=== PATIENT | female | born 1955 | race Asian ===

== ENCOUNTER → 2017-07-21 09:20 | Outpatient (CLI) | payer OTHER, SELFPAY ==
[2017-07-21 09:57] LABS: Hemoglobin A1C% w Est Avg Glu 7.2 % (4.0-6.0)
[2017-07-21 10:20] LABS: Microalbumi Creatinin Ratio Ur 15.6 ug/mg CR (<30)
[2017-07-21 10:24] LABS: Alanine Aminotransferase 32 IU/L (9-52); Albumin 4.2 g/dL (3.5-5.0); Albumin Globulin Ratio 0.9 (1.0-2.8); Alkaline Phosphatase 57 U/L (38-126); Aspartate Aminotransferase 27 IU/L (14-36); BUN Creatinine Ratio 21.7 (6-22); Bilirubin Total 0.7 mg/dL (0.2-1.3); Blood Urea Nitrogen 13 mg/dL (7-17); Carbon Dioxide 28 mmol/L (22-32); Chloride 100 mmol/L (98-107); Cholesterol 210 mg/dL (140-199); Estimated Glomerular Filt Rate > 60.0 mL/min (>60); Globulin 4.5 g/dL (1.7-4.1); Glucose 134 mg/dL (80-110); HDL Cholesterol 42 mg/dL (40-60); HEMOLYSIS < 15 (0-50); LDL Cholesterol Calculated 136 mg/dL (<100); Potassium 4.3 mmol/L (3.4-5.1); Sodium 139 mmol/L (137-145); Total Protein 8.7 g/dL (6.3-8.2); Triglycerides 160 mg/dL (35-150)
== END ==
PROVIDERS: PCP Physician Assistant; Visit Provider Physician Assistant
DX: E78.2 Mixed hyperlipidemia (principal); E11.9 Type 2 diabetes mellitus without complications; I10 Essential (primary) hypertension
CPT/HCPCS: 36415; 80053; 80061; 82043; 82570; 83036

== ENCOUNTER → 2018-01-15 10:19 | Outpatient (CLI) | payer OTHER, SELFPAY ==
[2018-01-15 11:09] LABS: Alanine Aminotransferase 21 IU/L (9-52); Albumin 4.6 g/dL (3.5-5.0); Albumin Globulin Ratio 1.1 (1.0-2.8); Alkaline Phosphatase 56 U/L (38-126); Aspartate Aminotransferase 19 IU/L (14-36); Bilirubin Total 0.6 mg/dL (0.2-1.3); Blood Urea Nitrogen 12 mg/dL (7-17); Calcium 9.4 mg/dL (8.4-10.2); Carbon Dioxide 30 mmol/L (22-32); Chloride 101 mmol/L (98-107); Cholesterol 228 mg/dL (140-199); Estimated Glomerular Filt Rate > 60.0 mL/min (>60); Globulin 4.2 g/dL (1.7-4.1); Glucose 133 mg/dL (80-110); HDL Cholesterol 50 mg/dL (40-60); HEMOLYSIS < 15 (0-50); LDL Cholesterol Calculated 145 mg/dL (<100); Potassium 4.5 mmol/L (3.4-5.1); Sodium 143 mmol/L (137-145); Total Protein 8.8 g/dL (6.3-8.2); Triglycerides 164 mg/dL (35-150)
[2018-01-15 11:12] LABS: Hemoglobin A1C% w Est Avg Glu 7.5 % (4.0-6.0)
[2018-01-15 11:22] LABS: Creatinine Urine Random 85.5 mg/dL
[2018-01-15 11:27] LABS: Microalbumin Urine Random 2.4 mg/dL (0-1.6)
== END ==
PROVIDERS: PCP Physician Assistant; Visit Provider Physician Assistant
DX: E11.9 Type 2 diabetes mellitus without complications (principal); E78.2 Mixed hyperlipidemia; I10 Essential (primary) hypertension
CPT/HCPCS: 36415; 80053; 80061; 82043; 82570; 83036

== ENCOUNTER 2018-02-04 15:05 | Emergency (ER) | payer OTHER, SELFPAY ==
[2018-02-04 15:18] VITALS: BP 175/86; PULSE 80; RESP 15; TEMP 36.7; O2SAT 99; BMI 23.2
[2018-02-04 15:20] VITALS: BP 171/97; BP 173/93; BP 175/86; PULSE 80; PULSE 86; PULSE 91
--- NOTE | 2018-02-04 15:21 | PC.NURSE ---
pt feels dizzy with position changes,like the room is spinning
--- NOTE | 2018-02-04 15:38 | PC.NURSE ---
States symptoms for a month.
--- NOTE | 2018-02-04 15:45 | ED.DIZZY ---
HPI - Dizziness <Osman MarshSHAYLA do - Last Filed: 02/04/18 21:25> General Chief Complaint: Dizziness Stated Complaint: vertigo Time Seen by Provider: 02/04/18 15:45 Source: patient Mode of arrival: ambulatory Limitations: no limitations History of Present Illness HPI Narrative: 62-year-old female with history of type 2 diabetes and is a nonsmoker here with multiple complaints. She reports that she has had vertigo with the room spinning type of sensation over the past couple of weeks. She reports that she has had the symptoms on and off over the past couple of years. She states that when she moves or changes position quickly it worsens her symptoms. She denies any nausea or vomiting. She denies any headaches no fevers no chills. She denies any chest pain or shortness of breath. She also reports she has had left lower quadrant pain on and off also for the past couple of years. She denies any urinary symptoms. Positive p.o. intake. Last bowel movement was yesterday was unremarkable. No other concerns or complaints at this time. Related Data Home Medications Medication Instructions Recorded Confirmed plant stanol festus 450 mg tablet 2 tab PO DAILY tab 01/26/18 02/04/18 aspirin 81 mg PO DAILY 02/04/18 02/04/18 cranberry 1 cap PO DAILY 02/04/18 02/04/18 Previous Rx's Medication Instructions Recorded Freestyle lite glucometer See Label Instructions .ROUTE BID 01/26/18 #1 each freestyle lite test strips See Label Instructions .ROUTE BID 01/26/18 #100 each lancets See Label Instructions .ROUTE BID 01/26/18 #100 each losartan 25 mg tablet 25 mg PO BID #180 tab 01/26/18 metformin 500 mg tablet 500 mg PO BIDCC #180 tab 01/26/18 diazepam 2 mg PO BID PRN #14 tab 02/04/18 Allergies Allergy/AdvReac Type Severity Reaction Status Date / Time atorvastatin [ATORVASTATIN] Allergy Intermediate Myalgias, Verified 02/04/18 15:18 ankle pain influenza virus vaccine tv Allergy Intermediate HIVES Verified 02/04/18 15:18 splt 2012- (4 yr,up) [From FLUVIRIN] diphenhydramine Allergy Mild LAWSON AND Verified 02/04/18 15:18 [DIPHENHYDRAMINE] FATIGUE lisinopril [LISINOPRIL] Allergy Mild Body aches Verified 02/04/18 15:18 rosuvastatin [ROSUVASTATIN] Allergy Mild Body aches Verified 02/04/18 15:18 niacin [NIACIN] Allergy Unknown PATIENT Verified 02/04/18 15:18 DOESN'T REMEMBER Review of Systems <SHAYLA Adames - Last Filed: 02/04/18 21:25> Constitutional Denies chills, Denies fever(s), Denies lethargy and Denies weakness Eyes Denies change in vision, Denies eye discharge, Denies irritation and Denies loss of vision ENT Ears, Nose, Mouth, and Throat: Denies change in voice, Denies neck pain and Denies sore throat Cardiovascular Denies chest pain, Denies irregular heart rhythm, Denies lightheadedness, Denies palpitations, Denies dyspnea, Denies dyspnea on exertion and Denies orthopnea Respiratory Denies cough, Denies dyspnea, Denies dyspnea on exertion and Denies wheezing Gastrointestinal Gastrointestinal: Denies abdominal pain, Denies change in bowel habits, Denies diarrhea, Denies nausea and Denies vomiting Comments: Left lower quadrant pain on and off last couple of years. Genitourinary Denies hematuria, Denies flank pain, Denies urinary incontinence and Denies urinary urgency Musculoskeletal Denies neck pain Integumentary/Breasts Denies pruritus, Denies erythema, Denies rash and Denies wounds Neurologic Denies confusion, Denies loss of vision and Denies weakness Comments: Vertigo on and off last couple years Psychiatric Denies anxiety, Denies confusion, Denies depression, Denies homicidal ideation and Denies suicidal ideation Endocrine Denies palpitations Hematologic/Lymphatic Denies easy bruising Allergic/Immunologic Denies wheezing Exam <SHAYLA Adames - Last Filed: 02/04/18 21:25> Initial Vital Signs Initial Vital Signs: Vital Signs Temperature 98.0 F 02/04/18 15:18 Pulse Rate 80 02/04/18 15:18 Respiratory Rate 15 02/04/18 15:18 Blood Pressure 175/86 H 02/04/18 15:18 Pulse Oximetry 99 02/04/18 15:18 Const General: cooperative and well developed Nutritional Appearance: well nourished Orientation: alert, awake, oriented x3 and not confused HENMT Ears: TM's normal bilaterally Mouth: oral mucosae normal and moist mucous membranes Eyes Conjunctivae: conjunctivae normal Sclera: sclerae normal Pupils: PERRL EOM: EOM intact bilaterally Resp Effort & Inspection: normal respiratory effort, able to speak in complete sentences, no respiratory distress and no use of accessory muscles Auscultation: clear to auscultation bilaterally, no rales, no rhonchi and no wheezes Cardio Rate: regular rate Rhythm: regular rhythm Heart Sounds: no click, no gallops, no murmurs and no rubs Pulses: normal peripheral pulses GI Inspection: non-distended Palpation: soft, no hepatosplenomegaly, No guarding, No pulsatile mass and No tender Auscultation: normal bowel sounds General: No CVA tenderness Skin General: no rashes or lesions noted, No jaundice and No petechiae Neuro General: alert, oriented x3, gait normal and no focal motor deficits Speech: speech normal <Ana Baig DO - Last Filed: 02/07/18 07:30> Initial Vital Signs Initial Vital Signs: Vital Signs Temperature 98.0 F 02/04/18 15:18 Pulse Rate 80 02/04/18 15:18 Respiratory Rate 15 02/04/18 15:18 Blood Pressure 175/86 H 02/04/18 15:18 Pulse Oximetry 99 02/04/18 15:18 Course <SHAYLA Adames - Last Filed: 02/04/18 21:25> Orders Ordered: Discontinued Medications Diazepam (Valium) 2 mg IV NOW ONE Stop: 02/04/18 18:10 Last Admin: 02/04/18 18:18 Dose: 2 mg Sodium Chloride (Normal Saline 0.9%) 1,000 mls @ 150 mls/hr IV CONT RORO Last Infusion: 02/04/18 18:59 Dose: 0 mls/hr Admin: 02/04/18 16:54 Dose: 150 mls/hr Vital Signs - 8 hr 02/04/18 15:18 02/04/18 15:20 02/04/18 16:51 Temperature 98.0 F Pulse Rate 80 73 Pulse Rate [Orthostatic Lying] 80 Pulse Rate [Orthostatic Sitting] 91 H Pulse Rate [Orthostatic Standing] 86 Respiratory Rate 15 16 Blood Pressure 175/86 H Blood Pressure [Left Arm] 156/75 H Blood Pressure [Orthostatic Lying] 175/86 H Blood Pressure [Orthostatic Sitting] 171/97 H Blood Pressure [Orthostatic Standing] 173/93 H Pulse Oximetry 99 98 02/04/18 18:04 02/04/18 19:03 Temperature Pulse Rate 82 75 Pulse Rate [Orthostatic Lying] Pulse Rate [Orthostatic Sitting] Pulse Rate [Orthostatic Standing] Respiratory Rate 17 13 Blood Pressure 137/72 Blood Pressure [Left Arm] 148/77 H Blood Pressure [Orthostatic Lying] Blood Pressure [Orthostatic Sitting] Blood Pressure [Orthostatic Standing] Pulse Oximetry 100 97 <Ana Baig DO - Last Filed: 02/07/18 07:30> Orders Ordered: Discontinued Medications Diazepam (Valium) 2 mg IV NOW ONE Stop: 02/04/18 18:10 Last Admin: 02/04/18 18:18 Dose: 2 mg Sodium Chloride (Normal Saline 0.9%) 1,000 mls @ 150 mls/hr IV CONT RORO Last Infusion: 02/04/18 18:59 Dose: 0 mls/hr Admin: 02/04/18 16:54 Dose: 150 mls/hr Vital Signs - 8 hr 02/04/18 15:18 02/04/18 15:20 02/04/18 16:51 Temperature 98.0 F Pulse Rate 80 73 Pulse Rate [Orthostatic Lying] 80 Pulse Rate [Orthostatic Sitting] 91 H Pulse Rate [Orthostatic Standing] 86 Respiratory Rate 15 16 Blood Pressure 175/86 H Blood Pressure [Left Arm] 156/75 H Blood Pressure [Orthostatic Lying] 175/86 H Blood Pressure [Orthostatic Sitting] 171/97 H Blood Pressure [Orthostatic Standing] 173/93 H Pulse Oximetry 99 98 02/04/18 18:04 02/04/18 19:03 Temperature Pulse Rate 82 75 Pulse Rate [Orthostatic Lying] Pulse Rate [Orthostatic Sitting] Pulse Rate [Orthostatic Standing] Respiratory Rate 17 13 Blood Pressure 137/72 Blood Pressure [Left Arm] 148/77 H Blood Pressure [Orthostatic Lying] Blood Pressure [Orthostatic Sitting] Blood Pressure [Orthostatic Standing] Pulse Oximetry 100 97 MDM - Dizziness <SHAYLA Adames - Last Filed: 02/04/18 21:25> Lab Data Result diagrams: 02/04/18 16:35 02/04/18 16:35 Lab Results 02/04/18 02/04/18 Range/Units 16:35 16:35 WBC 6.5 (4.5-11.0) X10^3/uL RBC 5.00 (4.0-5.2) X10^6/uL Hgb 14.9 (12.0-16.0) g/dL Hct 44.2 (36-46) % MCV 88.4 (80-100) fL MCH 29.8 (26-34) PG MCHC 33.7 (30-36) % RDW 13.3 (11.6-14.8) % Plt Count 253 (150-400) X10^3/uL Neut % (Auto) 53.4 (50-75) % Lymph % (Auto) 37.8 (25-40) % [place] % (Auto) 5.4 (3-14) % Eos % (Auto) 2.4 (2-4) % Baso % (Auto) 1.0 (0-2) % Neut # (Auto) 3500 (1221-2778) /uL Sodium 143 (137-145) mmol/L Potassium 3.9 (3.4-5.1) mmol/L Chloride 102 (98-107) mmol/L Carbon Dioxide 28 (22-32) mmol/L BUN 13 (7-17) mg/dL Creatinine 0.70 (0.52-1.04) mg/dL Estimated GFR > 60.0 (>60) mL/min BUN/Creatinine Ratio 18.6 (6-22) Glucose 117 H (80-110) mg/dL Calcium 9.7 (8.4-10.2) mg/dL Total Bilirubin 0.4 (0.2-1.3) mg/dL AST 24 (14-36) IU/L ALT 26 (9-52) IU/L Alkaline Phosphatase 60 (38-126) U/L Total Creatine Kinase 79 (30-135) U/L CK-MB (CK-2) TNP CK-MB (CK-2) Rel Index TNP Troponin I < 0.012 (0.01-0.034) ng/mL Total Protein 9.5 H (6.3-8.2) g/dL Albumin 4.9 (3.5-5.0) g/dL Globulin 4.6 H (1.7-4.1) g/dL Albumin/Globulin Ratio 1.1 (1.0-2.8) Lipase 145 (23-300) U/L Urine Dip Bedside Urine Glucose Negative Bedside Urine Bilirubin - Negative Bedside Urine Ketone - Negative Urine Specific Yale 1.010 Bedside Urine Occult Blood - Negative Bedside Urine pH 6.5 Bedside Urine Protein - Negative Bedside Urine Urobilinogen - Negative Bedside Urine Nitrite - Negative Bedside Urine Leukocytes - Negative Esterase Imaging Data CT scan - abdomen: Radiologist's impression: [address] [address] [address] Scan Report Signed Patient: Skye Powers MR#: [id number] : 1955 Acct:[id number] Age/Sex: 62 / F Date of Service: 02/04/18 Loc: ED Accession Number: [id number] Procedure: CT abdomen pelvis w con Ordering Provider: Osman Downs PROCEDURE: CT ABDOMEN PELVIS W CON INDICATIONS: Left lower quadrant pain TECHNIQUE: After the administration of intravenous contrast, 5 mm thick sections acquired from the diaphragm to the symphysis. 5 mm coronal and sagittal reformats were acquired. For radiation dose reduction, the following was used: automated exposure control, adjustment of mA and/or kV according to patient size. COMPARISON: [facility], CT, CT HEAD/BRAIN WO CON, 02/04/2018, 17:08. FINDINGS: Image quality: Excellent. ABDOMEN: Lung bases: Lung bases are clear. Heart size is normal. Solid organs: There is diffuse hepatic hypoattenuation suggestive of hepatic steatosis. Liver is otherwise normal in size and enhancement. Gallbladder is unremarkable. Biliary system is non dilated. Pancreas enhances normally. Spleen is normal in size and enhancement. No adrenal nodules. Kidneys demonstrate normal size and enhancement, without hydronephrosis. Peritoneum and bowel: Multiple small bowel loops demonstrate minimal wall hyperemia, predominantly within the anterior abdomen. Moderate shoulder noted. Bowel loops demonstrate otherwise normal wall thickness and caliber. No free fluid or air. Appendix is best seen on axial image 47 of series 2. There are no left lower quadrant inflammatory findings to suggest acute diverticulitis on CT. Nodes and vessels: No retroperitoneal or mesenteric adenopathy by size criteria. Aorta and inferior vena cava are normal in size. Moderate calcified and noncalcified plaque of abdominal aorta. Miscellaneous: No ventral hernias. PELVIS: Genitourinary: Bladder wall thickness is normal. Miscellaneous: No inguinal hernias or adenopathy. Uterus is present. Bilateral pelvic surgical clips are noted, likely from prior tubal ligation. Bilateral adnexa are prominent, but no abnormal adnexal masses are identified. Bones: Mild multilevel degenerative changes of the spine. IMPRESSION: 1. Multiple small bowel loops demonstrate minimal wall hyperemia, a nonspecific finding that can be seen with low-grade bowel inflammation/enteritis. Clinical correlation recommended. 2. Moderate stool burden within the colon. 3. Additional findings as described above, including diffuse hepatic hypoattenuation suggestive of hepatic steatosis. Dictated by: Dominguez Leija M.D. on 02/04/2018 at 17:57 Approved by: Dominguez Leija M.D. on 02/04/2018 at 18:08 Chest x-ray: Radiologist's impression: [address] [address] XRay Report Signed Patient: Skye Powers MR#: [id number] : 1955 Acct:[id number] Age/Sex: 62 / F Date of Service: 02/04/18 Loc: ED Accession Number: [id number] Procedure: XR chest 1V Ordering Provider: Osman Downs PROCEDURE: XR CHEST 1V INDICATIONS: Vertigo TECHNIQUE: One view of the chest was acquired. COMPARISON: [facility], CHEST 1 VIEW, 01/12/2016, 14:45. FINDINGS: Surgical changes and devices: None. Lungs and pleura: No pleural effusions or pneumothorax. Lungs are clear. Mediastinum: Mediastinal contours appear normal. Heart size is normal. Bones and chest wall: No suspicious bony lesions. Overlying soft tissues appear unremarkable. IMPRESSION: No acute cardiopulmonary pathology. Dictated by: Wayne Rosas M.D. on 02/04/2018 at 16:53 Approved by: Wayne Rosas M.D. on 02/04/2018 at 16:54 CT scan - head: Radiologist's impression: Launch Image View Report History Print [address] [address] [address] Scan Report Signed Patient: Skye Powers MR#: [id number] : 1955 Acct:[id number] Age/Sex: 62 / F Date of Service: 02/04/18 Loc: ED Accession Number: [id number] Procedure: CT head/brain wo con Ordering Provider: Osman Downs PROCEDURE: CT HEAD/BRAIN WO CON INDICATIONS: Vertigo TECHNIQUE: Noncontrast 4.5 mm thick angled axial sections acquired from the foramen magnum to the vertex, with coronal and sagittal reformats. For radiation dose reduction, the following was used: automated exposure control, adjustment of mA and/or kV according to patient size. COMPARISON: None. FINDINGS: Image quality: Excellent. CSF spaces: Basal cisterns are patent. There is moderate diffuse cerebral volume loss resulting in increased prominence of the sulci, ventricles, and extra-axial spaces. Brain: No midline shift. No intracranial masses or hemorrhage. Vallejo-white matter interface is normal. Vascular calcifications are noted. Mild scattered subcortical and periventricular white matter hypoattenuation is nonspecific but can be seen with chronic microvascular ischemic changes. Skull and face: Calvarium and visualized facial bones are intact, without suspicious lesions. The optic lenses are not well seen on this exam. Sinuses: Mild right maxillary sinus mucosal thickening. Visualized sinuses and mastoids are otherwise clear. IMPRESSION: No acute intracranial abnormality. Dictated by: Dominguez Leija M.D. on 02/04/2018 at 17:49 Approved by: Dominguez Leija M.D. on 02/04/2018 at 17:56 ECG Data Interpretation: EKG shows normal sinus rhythm with no ST elevation or depression. No ectopy. Ventricular rate is 77. Pr interval of 192. QRS duration 95. QTC of 411. MDM Narrative Medical decision making narrative: CBC was obtained was unremarkable. Chem panel and lipase were obtained and were unremarkable. Cardiac enzymes were obtained were negative. EKG shows sinus rhythm with no ST elevation or depression. No ectopy. Chest x-ray was obtained was negative for any acute findings. Head CT was obtained was also negative for any acute findings. CT of the abdomen was obtained and shows moderate stool loading to the colon area most likely causing her discomfort. She is prescribed MiraLax. No emergent cause of chronic vertigo is found. She is prescribed small amount of diazepam to see if it helps with her symptoms. Follow up with primary care provider. She is referred to ENT for further evaluation. For any worsening symptoms return to the emergency room. <Ana Baig, - Last Filed: 12/31/18 07:30> Lab Data Lab Results 02/04/18 02/04/18 Range/Units 16:35 16:35 WBC 6.5 (4.5-11.0) X10^3/uL RBC 5.00 (4.0-5.2) X10^6/uL Hgb 14.9 (12.0-16.0) g/dL Hct 44.2 (36-46) % MCV 88.4 (80-100) fL MCH 29.8 (26-34) PG MCHC 33.7 (30-36) % RDW 13.3 (11.6-14.8) % Plt Count 253 (150-400) X10^3/uL Neut % (Auto) 53.4 (50-75) % Lymph % (Auto) 37.8 (25-40) % [place] % (Auto) 5.4 (3-14) % Eos % (Auto) 2.4 (2-4) % Baso % (Auto) 1.0 (0-2) % Neut # (Auto) 3500 (3436-9194) /uL Sodium 143 (137-145) mmol/L Potassium 3.9 (3.4-5.1) mmol/L Chloride 102 (98-107) mmol/L Carbon Dioxide 28 (22-32) mmol/L BUN 13 (7-17) mg/dL Creatinine 0.70 (0.52-1.04) mg/dL Estimated GFR > 60.0 (>60) mL/min BUN/Creatinine Ratio 18.6 (6-22) Glucose 117 H (80-110) mg/dL Calcium 9.7 (8.4-10.2) mg/dL Total Bilirubin 0.4 (0.2-1.3) mg/dL AST 24 (14-36) IU/L ALT 26 (9-52) IU/L Alkaline Phosphatase 60 (38-126) U/L Total Creatine Kinase 79 (30-135) U/L CK-MB (CK-2) TNP CK-MB (CK-2) Rel Index TNP Troponin I < 0.012 (0.01-0.034) ng/mL Total Protein 9.5 H (6.3-8.2) g/dL Albumin 4.9 (3.5-5.0) g/dL Globulin 4.6 H (1.7-4.1) g/dL Albumin/Globulin Ratio 1.1 (1.0-2.8) Lipase 145 (23-300) U/L Urine Dip Bedside Urine Glucose Negative Bedside Urine Bilirubin - Negative Bedside Urine Ketone - Negative Urine Specific Yale 1.010 Bedside Urine Occult Blood - Negative Bedside Urine pH 6.5 Bedside Urine Protein - Negative Bedside Urine Urobilinogen - Negative Bedside Urine Nitrite - Negative Bedside Urine Leukocytes - Negative Esterase Discharge Plan Departure Patient Disposition: Home Clinical Impression: Vertigo, Abdominal pain Discharge Date/Time: 02/04/18 19:03 Interventions: ED Discharge Assessment Last Done: 02/04/18 19:03 Instructions: DI for Vertigo Activity Restrictions/Additional Instructions: CT of the head and chest x-ray were obtained were unremarkable. Laboratory results today were normal. Cardiac enzymes were normal. EKG was unremarkable. CT of the abdomen shows moderate amount of stool loading to the colon area most likely causing her discomfort. Year prescribed MiraLax laxative to see if it helps symptoms. Plenty of fluids. You are prescribed diazepam to see if it helps with the vertigo use as directed no driving while on the diazepam. Follow up with ENT call the office at number provided to schedule follow-up appointment. Follow up with primary care provider. Return emergency room for any worsening symptoms. Prescriptions: New diazepam 2 mg tablet 2 mg PO BID PRN (Reason: vertigo) Qty: 14 RF: 0 No Action plant stanol festus [Cholest Off] 450 mg tablet 2 tab PO DAILY RF: 0 losartan 25 mg tablet 25 mg PO BID Qty: 180 RF: 0 metformin [Glucophage] 500 mg tablet 500 mg PO BIDCC Qty: 180 RF: 3 Freestyle lite glucometer See Label Instructions .ROUTE BID Qty: 1 RF: 0 lancets See Label Instructions .ROUTE BID Qty: 100 RF: 3 freestyle lite test strips See Label Instructions .ROUTE BID Qty: 100 RF: 3 aspirin 81 mg Tablet,Delayed Release (Dr/Ec) 81 mg PO DAILY RF: 0 cranberry 1 cap PO DAILY RF: 0 Referrals: Kyle Daigle MD [Physician] - Caroline Fontana PA-C [Primary Care Provider] - <Ana Baig DO - Last Filed: 02/07/18 07:30> Cosign ED Attending Cosignature Attestation: I was immediately available in the department for consultation. This documentation has been reviewed and I agree with assessment and plan. Supervised by Ana Baig, DO
--- NOTE | 2018-02-04 16:29 | DI.RAD.S_ITS ---
PROCEDURE: XR CHEST 1V INDICATIONS: Vertigo TECHNIQUE: One view of the chest was acquired. COMPARISON: [facility], , CHEST 1 VIEW, 01/12/2016, 14:45. FINDINGS: Surgical changes and devices: None. Lungs and pleura: No pleural effusions or pneumothorax. Lungs are clear. Mediastinum: Mediastinal contours appear normal. Heart size is normal. Bones and chest wall: No suspicious bony lesions. Overlying soft tissues appear unremarkable. IMPRESSION: No acute cardiopulmonary pathology. Dictated by: Wayne Rosas M.D. on 02/04/2018 at 16:53 Approved by: Wayne Rosas M.D. on 02/04/2018 at 16:54
--- NOTE | 2018-02-04 16:29 | DI.CT.S_ITS ---
PROCEDURE: CT HEAD/BRAIN WO CON INDICATIONS: Vertigo TECHNIQUE: Noncontrast 4.5 mm thick angled axial sections acquired from the foramen magnum to the vertex, with coronal and sagittal reformats. For radiation dose reduction, the following was used: automated exposure control, adjustment of mA and/or kV according to patient size. COMPARISON: None. FINDINGS: Image quality: Excellent. CSF spaces: Basal cisterns are patent. There is moderate diffuse cerebral volume loss resulting in increased prominence of the sulci, ventricles, and extra-axial spaces. Brain: No midline shift. No intracranial masses or hemorrhage. Vallejo-white matter interface is normal. Vascular calcifications are noted. Mild scattered subcortical and periventricular white matter hypoattenuation is nonspecific but can be seen with chronic microvascular ischemic changes. Skull and face: Calvarium and visualized facial bones are intact, without suspicious lesions. The optic lenses are not well seen on this exam. Sinuses: Mild right maxillary sinus mucosal thickening. Visualized sinuses and mastoids are otherwise clear. IMPRESSION: No acute intracranial abnormality. Dictated by: Dominguez Leija M.D. on 02/04/2018 at 17:49 Approved by: Dominguez Leija M.D. on 02/04/2018 at 17:56
--- NOTE | 2018-02-04 16:30 | DI.CT.S_ITS ---
PROCEDURE: CT ABDOMEN PELVIS W CON INDICATIONS: Left lower quadrant pain TECHNIQUE: After the administration of intravenous contrast, 5 mm thick sections acquired from the diaphragm to the symphysis. 5 mm coronal and sagittal reformats were acquired. For radiation dose reduction, the following was used: automated exposure control, adjustment of mA and/or kV according to patient size. COMPARISON: [facility], CT, CT HEAD/BRAIN WO CON, 02/04/2018, 17:08. FINDINGS: Image quality: Excellent. ABDOMEN: Lung bases: Lung bases are clear. Heart size is normal. Solid organs: There is diffuse hepatic hypoattenuation suggestive of hepatic steatosis. Liver is otherwise normal in size and enhancement. Gallbladder is unremarkable. Biliary system is non dilated. Pancreas enhances normally. Spleen is normal in size and enhancement. No adrenal nodules. Kidneys demonstrate normal size and enhancement, without hydronephrosis. Peritoneum and bowel: Multiple small bowel loops demonstrate minimal wall hyperemia, predominantly within the anterior abdomen. Moderate shoulder noted. Bowel loops demonstrate otherwise normal wall thickness and caliber. No free fluid or air. Appendix is best seen on axial image 47 of series 2. There are no left lower quadrant inflammatory findings to suggest acute diverticulitis on CT. Nodes and vessels: No retroperitoneal or mesenteric adenopathy by size criteria. Aorta and inferior vena cava are normal in size. Moderate calcified and noncalcified plaque of abdominal aorta. Miscellaneous: No ventral hernias. PELVIS: Genitourinary: Bladder wall thickness is normal. Miscellaneous: No inguinal hernias or adenopathy. Uterus is present. Bilateral pelvic surgical clips are noted, likely from prior tubal ligation. Bilateral adnexa are prominent, but no abnormal adnexal masses are identified. Bones: Mild multilevel degenerative changes of the spine. IMPRESSION: 1. Multiple small bowel loops demonstrate minimal wall hyperemia, a nonspecific finding that can be seen with low-grade bowel inflammation/enteritis. Clinical correlation recommended. 2. Moderate stool burden within the colon. 3. Additional findings as described above, including diffuse hepatic hypoattenuation suggestive of hepatic steatosis. Dictated by: Dominguez Leija M.D. on 02/04/2018 at 17:57 Approved by: Dominguez Leija M.D. on 02/04/2018 at 18:08
[2018-02-04 16:47] LABS: Add Manual Diff / Slide Review NO; Eosinophils Percent Auto 2.4 % (2-4); Hematocrit 44.2 % (36-46); Hemoglobin 14.9 g/dL (12.0-16.0); Lymphocytes Percent Auto 37.8 % (25-40); Mean Corpuscular HGB Conc 33.7 % (30-36); Mean Corpuscular Hemoglobin 29.8 PG (26-34); Mean Corpuscular Volume 88.4 fL (80-100); Monocytes Percent Auto 5.4 % (3-14); Neutrophils Absolute Auto 3500 /uL (1500-7000); Neutrophils Percent Auto 53.4 % (50-75); Platelet Count 253 X10^3/uL (150-400); Red Cell Distribution Width 13.3 % (11.6-14.8); White Blood Cell Count 6.5 X10^3/uL (4.5-11.0)
[2018-02-04 16:51] VITALS: BP 156/75; PULSE 73; RESP 16; O2SAT 98
[2018-02-04] MEDS: SODIUM CHLORIDE 0.9% 1,000 ML 150 ML IV (16:54)
[2018-02-04 17:07] LABS: Alanine Aminotransferase 26 IU/L (9-52); Albumin 4.9 g/dL (3.5-5.0); Albumin Globulin Ratio 1.1 (1.0-2.8); Alkaline Phosphatase 60 U/L (38-126); Aspartate Aminotransferase 24 IU/L (14-36); BUN Creatinine Ratio 18.6 (6-22); Bilirubin Total 0.4 mg/dL (0.2-1.3); Blood Urea Nitrogen 13 mg/dL (7-17); Calcium 9.7 mg/dL (8.4-10.2); Carbon Dioxide 28 mmol/L (22-32); Chloride 102 mmol/L (98-107); Creatine Kinase 79 U/L (30-135); Estimated Glomerular Filt Rate > 60.0 mL/min (>60); Globulin 4.6 g/dL (1.7-4.1); Glucose 117 mg/dL (80-110); HEMOLYSIS < 15 (0-50); Lipase 145 U/L (23-300); Potassium 3.9 mmol/L (3.4-5.1); Sodium 143 mmol/L (137-145); Total Protein 9.5 g/dL (6.3-8.2)
[2018-02-04 17:29] LABS: Troponin I < 0.012 ng/mL (0.01-0.034)
[2018-02-04 18:04] VITALS: BP 148/77; PULSE 82; RESP 17; O2SAT 100
[2018-02-04] MEDS: diazePAM 10 MG/2 ML SYRINGE 2 MG IV (18:18)
[2018-02-04 19:03] VITALS: BP 137/72; PULSE 75; RESP 13; O2SAT 97
== END 2018-02-04 19:03 | disposition home or self-care (01) ==
PROVIDERS: Emergency Provider Nurse Practitioner Family; PCP Physician Assistant
DX: R42 Dizziness and giddiness (principal); R10.9 Unspecified abdominal pain
CPT/HCPCS: 36591; 70450; 71045; 74177; 80053; 81003; 82550; 83690; 84484; 85025; 93005; 96361; 96374; 99283; 99285; J3360

== ENCOUNTER → 2018-12-02 10:32 | Outpatient (CLI) | payer MEDICARE, OTHER, SELFPAY ==
[2018-12-02 11:08] LABS: Hemoglobin A1C% w Est Avg Glu 7.3 % (4.0-6.0)
[2018-12-02 11:18] LABS: Alanine Aminotransferase 18 IU/L (9-52); Albumin 4.7 g/dL (3.5-5.0); Albumin Globulin Ratio 1.1 (1.0-2.8); Alkaline Phosphatase 66 U/L (38-126); Aspartate Aminotransferase 23 IU/L (14-36); Bilirubin Total 0.7 mg/dL (0.2-1.3); Blood Urea Nitrogen 8 mg/dL (7-17); Calcium 9.5 mg/dL (8.4-10.2); Carbon Dioxide 28 mmol/L (22-32); Chloride 100 mmol/L (98-107); Cholesterol 230 mg/dL (140-199); Estimated Glomerular Filt Rate > 60.0 mL/min (>60); Globulin 4.1 g/dL (1.7-4.1); Glucose 131 mg/dL (80-110); HDL Cholesterol 40 mg/dL (40-60); HEMOLYSIS < 15 (0-50); LDL Cholesterol Calculated 139 mg/dL (<100); Potassium 4.7 mmol/L (3.4-5.1); Sodium 139 mmol/L (137-145); Total Protein 8.8 g/dL (6.3-8.2); Triglycerides 253 mg/dL (35-150)
[2018-12-02 11:22] LABS: Creatinine Urine Random 46.3 mg/dL
[2018-12-02 11:27] LABS: Microalbumi Creatinin Ratio Ur 25.9 ug/mg CR (<30); Microalbumin Urine Random 1.2 mg/dL (0-1.6)
== END ==
PROVIDERS: PCP Physician Assistant; Visit Provider Physician Assistant
DX: E11.9 Type 2 diabetes mellitus without complications (principal); E78.2 Mixed hyperlipidemia; I10 Essential (primary) hypertension
CPT/HCPCS: 36415; 80053; 80061; 82043; 82570; 83036

== ENCOUNTER 2019-01-28 12:17 | Emergency (ER) | payer MEDICARE, OTHER, SELFPAY ==
[2019-01-28 12:33] VITALS: BP 166/81; PULSE 98; RESP 17; TEMP 36.7; O2SAT 98
--- NOTE | 2019-01-28 12:49 | ED_ITS ---
HPI - URI/Sore Throat General Chief Complaint: Upper Respiratory Symptoms Stated Complaint: sick for awhile/nausea/poss UTI Time Seen by Provider: 01/28/19 12:47 Source: patient and family () Mode of arrival: Ambulatory Limitations: no limitations History of Present Illness HPI Narrative: This is a 63-year-old female who comes to the emergency department with 4-5 days symptoms. Patient has been afebrile but has had nasal congestion with a cough. She describes it productive with clear phlegm. Patient has had a little bit of a sore throat she has had a lot of nasal congestion. She has had no chest pain or pressure. No shortness of breath. She has been slightly nauseated but no vomiting. Patient has not had any diarrhea and has had 2 regular bowel movements today. She has noticed some frequency, no urgency or dysuria but notes that a urine seems harder than normal. Patient denies any flank pain. She has had a very mild abdominal discomfort which she states has moved around. Patient has not had any rashes or skin changes. She states she is a diabetic she is on metformin daily as well as a blood pressure medication. Her both state that she has had a recent exposure with a family member about a week ago with similar type symptoms. She has not had a flu shot. She has a come 9 by her she has been to him for 41 years. Related Data Home Medications Medication Instructions Recorded Confirmed plant stanol festus 450 mg tablet 2 tab PO DAILY tab 01/26/18 02/04/18 aspirin 81 mg PO DAILY 02/04/18 01/28/19 cranberry 1 cap PO DAILY 02/04/18 02/04/18 Previous Rx's Medication Instructions Recorded losartan 25 mg tablet 25 mg PO BID #180 tab 01/26/18 metformin 500 mg tablet 500 mg PO BIDCC #180 tab 01/26/18 diazepam 2 mg PO BID PRN #14 tab 02/04/18 nitrofurantoin monohyd/m-cryst 100 mg PO BID #14 cap 01/28/19 [Macrobid] Allergies Allergy/AdvReac Type Severity Reaction Status Date / Time atorvastatin [ATORVASTATIN] Allergy Intermediate Myalgias, Verified 01/28/19 12:38 ankle pain influenza virus vaccine tv Allergy Intermediate HIVES Verified 01/28/19 12:38 splt 2012- (4 yr,up) [From FLUVIRIN] diphenhydramine Allergy Mild LAWSON AND Verified 01/28/19 12:38 [DIPHENHYDRAMINE] FATIGUE lisinopril [LISINOPRIL] Allergy Mild Body aches Verified 01/28/19 12:38 rosuvastatin [ROSUVASTATIN] Allergy Mild Body aches Verified 01/28/19 12:38 niacin [NIACIN] Allergy Unknown PATIENT Verified 01/28/19 12:38 DOESN'T REMEMBER Review of Systems Review of Systems ROS Unobtainable: All systems reviewed & are unremarkable except as noted in HPI and below Patient History Medical History (Updated 01/28/19 @ 14:20 by Ana Baig DO) Diabetes (Acute) Surgical History Status post tubal ligation Social History (Updated 01/28/19 @ 13:09 by Ana Baig DO) marital status: Smoking Status: Never smoker second hand exposure: No alcohol intake: never substance use type: does not use Smoking Status: Never smoker alcohol intake frequency: 0-2 drinks per day Substance Use Type: does not use Exam Narrative Exam Narrative: GEN: well nourished, well appearing female, alert and oriented x 3, patient appears to be in mild distress. HEENT: Atraumatic, pupils are equal round reactive to light, extraocular movements are intact, bilateral clear, TMs are clear with no fluid, there is no conjunctival pallor. Throat is positive for cobblestoning and postnasal drip, without any exudates, erythema, tonsillar enlargement or uvular deviation, no meningeal signs. HEART: Regular rate and rhythm without murmur, clicks, rubs. LUNGS:Lungs clear to auscultation, no wheezes, rales, crackles, chest moves symmetrically, no tachypnea or accessory muscle use. Patient does have a very small clear amount of phlegm in a sample cup. ABD:bowel sounds normal, soft, non-tender, no guarding, rebound, rigidity, no masses noted, no hepatosplenomegaly :No CVA tenderness MSCL: Non-tender, no muscle atrophy, muscles strength 5/5 upper and lower extremities, full range of motion. NEURO:CN 2-12 intact, sensation normal. SKIN: No rash, no erythema. Initial Vital Signs Initial Vital Signs: Vital Signs Temperature 98.1 F 01/28/19 12:33 Pulse Rate 98 H 01/28/19 12:33 Respiratory Rate 17 01/28/19 12:33 Blood Pressure 166/81 H 01/28/19 12:33 Pulse Oximetry 98 01/28/19 12:33 Course Orders Ordered: ED Orders 01/28/19 12:30 Influenza A & B (PCR) Stat Urine Culture Stat Urine Microscopic Stat 01/28/19 13:02 XR chest 2V Stat Vital Signs Vital signs: Vital Signs - 8 hr 01/28/19 12:33 01/28/19 14:31 Temperature 98.1 F Pulse Rate 98 H 90 Respiratory Rate 17 16 Blood Pressure 166/81 H 142/73 H Pulse Oximetry 98 97 MDM - URI/Sore Throat Lab Data Attestation: I reviewed the patient's lab results. Labs: Lab Results 01/28/19 01/28/19 Range/Units 12:30 12:30 Urine RBC 0-1/hpf (0-5/HPF) Urine WBC 10-30/hpf H (0-5/HPF) Ur Squamous Epith Cells 0-1 /hpf (0-5/HPF) Urine Bacteria Many (>30) H (None) Ur Culture Indicated? Specimen cultured Influenza A (RT-PCR) Flu a negative (NEGATIVE) Influenza B (RT-PCR) Flu b negative (NEGATIVE) Point of Care Testing Rapid Strep A Negative Urine Dip Bedside Urine Glucose 100 mg/dl Bedside Urine Bilirubin - Negative Bedside Urine Ketone - Negative Urine Specific [place] 1.010 Bedside Urine Occult Blood +/- Bedside Urine pH 6.5 Bedside Urine Protein +/- 15 Bedside Urine Urobilinogen +/- 1mg Bedside Urine Nitrite - Negative Bedside Urine Leukocytes +++ 500 Esterase Imaging Data Chest x-ray: Radiologist's impression: [address] [address] XRay Report Signed Patient: Skye Powers RMR#: [id number] : 4Acct:[id number] Age/Sex: 63 / FDate of Service: 01/28/19 Loc: ED Accession Number: [id number] Procedure: XR chest 2V Ordering Provider: Ana Baig D.O. PROCEDURE: XR CHEST 2V INDICATIONS: cough TECHNIQUE: 2 views of the chest were acquired. COMPARISON: [facility], CT, CT ABDOMEN PELVIS W CON, 02/04/2018, 17:10. [facility], CR, CHEST 1 VIEW, 01/12/2016, 14:45. [facility], CR, XR CHEST 1V, 02/04/2018, 17:02. FINDINGS: Surgical changes and devices: None. Lungs and pleura: Lungs are clear. No pleural effusions or pneumothorax. Mediastinum: The cardiac contours are within normal limits. The aorta demonstrates calcification and tortuosity. Bones and chest wall: Age-appropriate bony degenerative changes are seen. No suspicious bony abnormalities. Soft tissues appear unremarkable. IMPRESSION: Normal chest plain films for age. Dictated by: Harpal Shaikh M.D. on 01/28/2019 at 12:24 Approved by: Harpal Shaikh M.D. on 01/28/2019 at 12:25 MDM Narrative Medical decision making narrative: Patient has urine culture pending but no prior cultures for evaluation. Family and patient state that she has had UTIs in the past and sometimes required multiple rounds of antibiotics but they're not sure if there was actual resistance or if they ?just were not working.? No urine cultures are available here. Patient family states this was when she was being seen in [place]. Patient's does seem to have an upper respiratory infection today. She has had a little bit of abdominal discomfort as well as some frequency and does have leukocyte esterase although no nitrates and a num rudolph of WBCs bacteria in her urine. Specimens culture but plan to start on prophylactic antibiotics for possible UTI. Discussed that her upper respiratory symptoms are unlikely to be related to her low her abdominal and urinary symptoms. She has had sugars around 130 at her maximum at home with no lows. She does check regularly. We discussed signs and symptoms to watch for and reasons to return. Patient feels comfortable with this plan. Discharge Plan Departure Patient Disposition: Home Clinical Impression: UTI (urinary tract infection) Discharge Date/Time: 01/28/19 14:31 Instructions: DI for Urinary Tract Infection (UTI) Activity Restrictions/Additional Instructions: Follow-up with your primary care physician in the next week if her symptoms have not started to resolve. Take antibiotics as prescribed, take them until they are totally gone. You may continue home medications as prescribed. Return to the ER for fevers greater 100.4 F, severe headaches, new shortness of breath, new chest pain or pressure, new or changing abdominal persistent vomiting black or bloody stools, elevated blood sugars or low blood sugars, difficulty with urination or other new or concerning symptoms. Prescriptions: New nitrofurantoin monohyd/m-cryst [Macrobid] 100 mg capsule 100 mg PO BID Qty: 14 RF: 0 No Action plant stanol festus [Cholest Off] 450 mg tablet 2 tab PO DAILY RF: 0 losartan 25 mg tablet 25 mg PO BID Qty: 180 RF: 0 metformin [Glucophage] 500 mg tablet 500 mg PO BIDCC Qty: 180 RF: 3 aspirin 81 mg Tablet,Delayed Release (Dr/Ec) 81 mg PO DAILY RF: 0 cranberry 1 cap PO DAILY RF: 0 diazepam 2 mg tablet 2 mg PO BID PRN (Reason: vertigo) Qty: 14 RF: 0 Referrals: Caroline Fontana PA-C [Primary Care Provider] -
[2019-01-28 12:51] LABS: Bacteria Urine Many (>30); Culture Indicated Urine Specimen Cultured; RBC Urine 0-1/HPF (0-5/HPF); Squamous Epithelial Cell Urine 0-1 /HPF (0-5/HPF); WBC Urine 10-30/HPF (0-5/HPF)
--- NOTE | 2019-01-28 13:02 | DI.RAD.S_ITS ---
PROCEDURE: XR CHEST 2V INDICATIONS: cough TECHNIQUE: 2 views of the chest were acquired. COMPARISON: [facility], CT, CT ABDOMEN PELVIS W CON, 02/04/2018, 17:10. [facility], CR, CHEST 1 VIEW, 01/12/2016, 14:45. [facility], CR, XR CHEST 1V, 02/04/2018, 17:02. FINDINGS: Surgical changes and devices: None. Lungs and pleura: Lungs are clear. No pleural effusions or pneumothorax. Mediastinum: The cardiac contours are within normal limits. The aorta demonstrates calcification and tortuosity. Bones and chest wall: Age-appropriate bony degenerative changes are seen. No suspicious bony abnormalities. Soft tissues appear unremarkable. IMPRESSION: Normal chest plain films for age. Dictated by: Harpal Shaikh M.D. on 01/28/2019 at 12:24 Approved by: Harpal Shaikh M.D. on 01/28/2019 at 12:25
[2019-01-28 13:15] LABS: Influenza A - CEPHEID Flu A NEGATIVE (NEGATIVE); Influenza B - CEPHEID Flu B NEGATIVE (NEGATIVE)
[2019-01-28 14:31] VITALS: BP 142/73; PULSE 90; RESP 16; O2SAT 97
== END 2019-01-28 14:31 | disposition home or self-care (01) ==
PROVIDERS: Emergency Provider Emergency Medicine; PCP Physician Assistant
DX: N39.0 Urinary tract infection, site not specified (principal); J02.9 Acute pharyngitis, unspecified
CPT/HCPCS: 71046; 81003; 81015; 87077; 87086; 87186; 87502; 87880; 99281; 99283

== ENCOUNTER → 2019-10-17 10:42 | Outpatient (CLI) | payer MEDICARE, OTHER, SELFPAY | PROVIDERS: PCP Registered Nurse; Referring Provider Registered Nurse; Visit Provider Registered Nurse | DX: E11.9 Type 2 diabetes mellitus without complications (principal) | CPT/HCPCS: 36415; 83036 ==

== ENCOUNTER → 2019-10-21 08:57 | Outpatient (CLI) | payer MEDICARE, OTHER, SELFPAY ==
[2019-10-21 10:36] LABS: Alanine Aminotransferase 33 IU/L (<35); Albumin 4.5 g/dL (3.5-5.0); Alkaline Phosphatase 59 U/L (38-126); Aspartate Aminotransferase 30 IU/L (14-36); Bilirubin Total 0.7 mg/dL (0.2-1.3); Blood Urea Nitrogen 14 mg/dL (7-17); Calcium 9.6 mg/dL (8.4-10.2); Carbon Dioxide 32 mmol/L (22-32); Chloride 99 mmol/L (98-107); Cholesterol 232 mg/dL (140-199); Estimated Glomerular Filt Rate > 60.0 mL/min (>60); Globulin 4.7 g/dL (1.7-4.1); Glucose 148 mg/dL (80-110); HDL Cholesterol 43 mg/dL (40-60); HEMOLYSIS < 15 (0-50); LDL Cholesterol Calculated 160 mg/dL (<100); Potassium 4.3 mmol/L (3.4-5.1); Sodium 138 mmol/L (137-145); Total Protein 9.2 g/dL (6.3-8.2); Triglycerides 145 mg/dL (35-150)
[2019-10-21 13:21] LABS: Creatinine Urine Random 29.1 mg/dL
[2019-10-21 13:35] LABS: Microalbumin Urine Random < 0.6 mg/dL (0-1.6)
== END ==
PROVIDERS: PCP Registered Nurse; Referring Provider Registered Nurse; Visit Provider Registered Nurse
DX: E11.69 Type 2 diabetes mellitus with other specified complication (principal); I10 Essential (primary) hypertension; E78.2 Mixed hyperlipidemia
CPT/HCPCS: 36415; 80053; 80061; 82043; 82570

== ENCOUNTER → 2019-11-02 11:39 | Outpatient (CLI) | payer MEDICARE, OTHER, SELFPAY ==
[2019-11-02 13:03] LABS: Appearance Urine UA CLEAR; Bilirubin Urine UA NEGATIVE (NEGATIVE); Color Urine UA YELLOW; Glucose Urine UA NEGATIVE (Negative); Ketones Urine UA NEGATIVE (NEGATIVE); Leukocyte Esterase Urine UA NEGATIVE (NEGATIVE); Nitrite Urine UA NEGATIVE (Negative); Occult Blood Urine UA NEGATIVE (Negative); Protein Urine UA NEGATIVE (Negative); Specific Gravity Urine UA <=1.005 (1.000-1.035); Urobilinogen Urine UA 0.2 E.U./dL (0.2)
[2019-11-02 13:06] LABS: pH Urine UA 6.5 (4.5-8.0)
== END ==
PROVIDERS: PCP Registered Nurse; Referring Provider Registered Nurse; Visit Provider Registered Nurse
DX: N89.8 Other specified noninflammatory disorders of vagina (principal)
CPT/HCPCS: 81003; 87491; 87591

== ENCOUNTER → 2020-10-16 08:57 | Outpatient (CLI) | payer MEDICARE, OTHER, SELFPAY ==
[2020-10-16 10:17] LABS: Hemoglobin A1C% w Est Avg Glu 6.8 % (4.0-6.0)
[2020-10-16 11:14] LABS: Creatinine Urine Random 44.9 mg/dL
[2020-10-16 11:21] LABS: Alanine Aminotransferase 20 IU/L (<35); Albumin 4.3 g/dL (3.5-5.0); Alkaline Phosphatase 52 U/L (38-126); Aspartate Aminotransferase 25 IU/L (14-36); BUN Creatinine Ratio 21.3 (6-22); Bilirubin Total 0.7 mg/dL (0.2-1.3); Blood Urea Nitrogen 13 mg/dL (7-17); Calcium 9.1 mg/dL (8.4-10.2); Carbon Dioxide 30 mmol/L (22-32); Chloride 102 mmol/L (98-107); Cholesterol 224 mg/dL (140-199); Estimated Glomerular Filt Rate > 60.0 mL/min (>60); Globulin 4.2 g/dL (1.7-4.1); Glucose 126 mg/dL (80-110); HDL Cholesterol 48 mg/dL (40-60); HEMOLYSIS < 15 (0-50); LDL Cholesterol Calculated 153 mg/dL (<100); Potassium 4.2 mmol/L (3.4-5.1); Sodium 138 mmol/L (137-145); Total Protein 8.5 g/dL (6.3-8.2); Triglycerides 115 mg/dL (35-150)
[2020-10-16 11:24] LABS: Microalbumin Urine Random < 0.6 mg/dL (0-1.6)
[2020-10-16 12:41] LABS: Urine N gonorrhoeae NOT DETECTED
[2020-10-16 12:46] LABS: Urine Chlamydia NOT DETECTED
== END ==
PROVIDERS: PCP Registered Nurse; Referring Provider Registered Nurse; Visit Provider Registered Nurse
DX: N89.8 Other specified noninflammatory disorders of vagina (principal); E11.42 Type 2 diabetes mellitus with diabetic polyneuropathy; E11.69 Type 2 diabetes mellitus with other specified complication; E78.2 Mixed hyperlipidemia; I10 Essential (primary) hypertension
CPT/HCPCS: 36415; 80053; 80061; 82043; 82570; 83036; 87491; 87591

== ENCOUNTER → 2021-04-05 13:16 | Outpatient (CLI) | payer MEDICARE, OTHER, SELFPAY | PROVIDERS: PCP Registered Nurse; Visit Provider Nurse Practitioner Family | DX: N39.0 Urinary tract infection, site not specified (principal); R30.0 Dysuria | CPT/HCPCS: 87077; 87086; 87186; 87210 ==

== ENCOUNTER 2021-06-02 11:57 | Emergency (ER) | payer MEDICARE, OTHER, SELFPAY ==
[2021-06-02 12:07] VITALS: BP 187/83; PULSE 108; RESP 24; TEMP 36.9; O2SAT 99; BMI 21.7
[2021-06-02 12:26] LABS: COVID19 -Nasal RAPID POSITIVE (Negative)
[2021-06-02 14:19] LABS: Appearance Urine UA SL CLOUDY; Bilirubin Urine UA NEGATIVE (NEGATIVE); Color Urine UA YELLOW; Glucose Urine UA 1+ g/dL (Negative); Ketones Urine UA TRACE (NEGATIVE); Leukocyte Esterase Urine UA NEGATIVE (NEGATIVE); Nitrite Urine UA POSITIVE (Negative); Occult Blood Urine UA TRACE-INTACT (Negative); Protein Urine UA NEGATIVE (Negative); Urobilinogen Urine UA 0.2 E.U./dL (0.2)
[2021-06-02 14:23] LABS: pH Urine UA 6.5 (4.5-8.0)
[2021-06-02 14:24] LABS: Bacteria Urine Many (>30); Culture Indicated Urine Specimen Cultured; RBC Urine None Seen (0-5/HPF); WBC Urine None Seen (0-5/HPF)
--- NOTE | 2021-06-02 14:42 | DI.RAD.S_ITS ---
PROCEDURE: XR ACUTE ABDOMEN SERIES INDICATIONS: Abdominal pain, COVID+ TECHNIQUE: One view chest and two views of the abdomen were acquired. COMPARISON: CT, CT ABDOMEN PELVIS W CON, 02/04/2018, 17:10. FINDINGS: Surgical changes and devices: None. Chest: Lungs are clear. Heart size is normal. No pleural effusions. No pneumoperitoneum. Abdomen: Bowel gas pattern is normal. Moderate stool without obstruction. No suspicious calcifications. Visualized solid organ contours appear normal. Bones: No suspicious bony lesions. IMPRESSION: Moderate stool without obstruction. Dictated by: Janna Barnett M.D. on 06/02/2021 at 15:27 Approved by: Janna Barnett M.D. on 06/02/2021 at 15:29
--- NOTE | 2021-06-02 15:24 | ED.ABDPAIN ---
HPI - Abdominal Pain General Chief Complaint: Upper Respiratory Symptoms Stated Complaint: States UTI, sinus headache, body pain Time Seen by Provider: 06/02/21 14:15 Source: patient Mode of arrival: Ambulatory History of Present Illness HPI narrative: 65-year-old female nonsmoker with history of hypertension and diabetes presents for evaluation of all over body aches for the past 2 days and a generalized headache. She did not receive any of her COVID vaccinations and was recently exposed. She denies chest pain or shortness of breath but has had a dry and hacking cough and some sore throat. She denies nausea or vomiting but states she has been having generalized abdominal pain for many months. She denies constipation or diarrhea. She does state that she has had urinary frequency and urgency, consistent with prior urinary tract infections. Related Data Home Medications Medication Instructions Recorded Confirmed plant stanol festus 450 mg tablet 2 tab PO DAILY tab 01/26/18 04/05/21 (Cholest Off) aspirin 81 mg tablet,delayed 81 mg PO DAILY 02/04/18 04/05/21 release cranberry 1 cap PO DAILY 02/04/18 04/05/21 Previous Rx's Medication Instructions Recorded blood sugar diagnostic (Blood #100 ea 05/07/21 Glucose Test) lancets #100 ea 05/07/21 losartan 25 mg tablet 25 mg PO BID 30 Days #60 tab 05/07/21 metformin 500 mg tablet,extended 1,000 mg PO BID 30 Days #60 tab 05/07/21 release 24 hr cephalexin 500 mg capsule 500 mg PO BID #10 cap 06/02/21 Allergies Allergy/AdvReac Type Severity Reaction Status Date / Time atorvastatin [ATORVASTATIN] Allergy Intermediate Myalgias, Verified 04/18/20 11:03 ankle pain influenza virus vaccine tv Allergy Intermediate HIVES Verified 04/18/20 11:03 splt 2012-14 (4 yr,up) [From FLUVIRIN] diphenhydramine Allergy Mild LAWSON AND Verified 04/18/20 11:03 [DIPHENHYDRAMINE] FATIGUE lisinopril [LISINOPRIL] Allergy Mild Body aches Verified 04/18/20 11:03 rosuvastatin [ROSUVASTATIN] Allergy Mild Body aches Verified 04/18/20 11:03 niacin [NIACIN] Allergy Unknown PATIENT Verified 04/18/20 11:03 DOESN'T REMEMBER Review of Systems Review of Systems Narrative: GENERAL: See HPI HEENT: Denies sinus pain, ear pain, sore throat, difficulty swallowing, dizziness. RESPIRATORY: See HPI CARDIOVASCULAR: Denies chest pain, palpitations, orthopnea, edema, GASTROINTESTINAL: See HPI : see HPI MUSCULOSKELETAL: denies weakness, joint pain, or bony pain SKIN: Denies rash, skin lesions, or other NEUROLOGIC: Denies weakness, headache, numbness, change in speech, confusion, seizures, incoordination. PSYCHIATRIC: No concerning psychosocial issues. 12 point review of systems is negative except for those stated above Patient History Surgical History Status post tubal ligation Social History marital status: Smoking Status: Never smoker second hand exposure: No alcohol intake: never substance use type: does not use Smoking Status: Never smoker alcohol intake frequency: 0-2 drinks per day Substance Use Type: does not use Exam Narrative Exam Narrative: GENERAL: [65] year old patient appears stated age. Well-developed patient, in mild distress. No respiratory distress HEAD: Atraumatic. Normocephalic. EYES: Pupils equal round and reactive. Extraocular motions intact. No scleral icterus. No injection or drainage. ENT: Nose without bleeding, purulent drainage. Throat without erythema, tonsillar hypertrophy or exudate. Airway patent. NECK: Trachea midline. Non tender. No meningeal signs CARDIOVASCULAR: Regular rate and rhythm without murmurs, gallops, or rubs. RESPIRATORY: Clear to auscultation. Breath sounds equal bilaterally. No wheezes, rales, or rhonchi. No increased work of breathing or use of accessory muscles GASTROINTESTINAL: Abdomen soft, mild suprapubic tenderness, nondistended. Bowel sounds present in all 4 quadrants EXTREMITIES: No edema or joint tenderness. BACK: Nontender without deformity or crepitance. No flank tenderness. NEURO: AOx3. SKIN: No rash or erythema of visible areas Initial Vital Signs Initial Vital Signs: Vital Signs Temperature 98.5 F 06/02/21 12:07 Pulse Rate 108 H 06/02/21 12:07 Respiratory Rate 24 06/02/21 12:07 Blood Pressure 187/83 H 06/02/21 12:07 Pulse Oximetry 99 06/02/21 12:07 Course Orders Ordered: ED Orders 06/02/21 12:12 COVID19 -Nasal RAPID/Pre-Proc Stat 06/02/21 14:04 Urinalysis and Microscopic Stat Urine Culture Stat 06/02/21 14:42 XR acute abdomen series Stat Vital Signs Vital signs: Vital Signs - 8 hr 06/02/21 12:07 Temperature 98.5 F Pulse Rate 108 H Respiratory Rate 24 Blood Pressure 187/83 H Pulse Oximetry 99 MDM - Abdominal Pain Lab Data Labs: Lab Results 06/02/21 06/02/21 Range/Units 12:12 14:04 Urine Color Yellow Urine Appearance Sl cloudy Urine pH 6.5 (4.5-8.0) Ur Specific [place] 1.010 (1.000-1.035) Urine Protein Negative (Negative) Urine Glucose (UA) 1+ H (Negative) g/dL Urine Ketones Trace H (NEGATIVE) Urine Occult Blood Trace-intact (Negative) Urine Nitrate Positive H (Negative) Urine Bilirubin Negative (NEGATIVE) Urine Urobilinogen 0.2 (0.2) E.U./dL Ur Leukocyte Esterase Negative (NEGATIVE) Urine RBC None seen (0-5/HPF) Urine WBC None seen (0-5/HPF) Urine Bacteria Many (>30) H (None) Ur Culture Indicated? Specimen cultured SARS-CoV-2 (PCR) Positive H (Negative) Imaging Data Chest x-ray: Radiologist's Impression: Chart Viewer Diagnostics Subcategory All Activity ??:?? All Time ??:?? All Subcategories Filter Laboratory Imaging Microbiology Pathology Blood Bank Tests Cardiovascular Other Specialty DATE TYPE STATUS REF RANGE/AUTHOR Hx Today 14:42 Chest/Abdomen X-ray Signed Janna Barnett 01/28/19 13:02 Chest X-Ray Signed Harpal Shaikh 02/04/18 16:30 Abdomen/Pelvis CT Signed Dominguez Leija 02/04/18 16:[address] Signed Dominguez Leija 02/04/18 16:29 Chest X-Ray Signed Wayne Rosas 02/04/18 15:05 Telemetry Strips ? 01/12/16 14:40 Radiology - Historical ? Skye Powers ED 65, F?1955 MRN#? [id number] REG ER,?Main ED??R07?? 160.02cm 55.792kg BMI: 21.8kg/m? Upper Respiratory Symptoms Acc#? [id number] Resus Status Not Ordered No Hx Avail Special Indicators No Data to Display Home Meds Not Confirmed Prescription Monitoring Program MEDICATIONS (INSTRUCTIONS) LAST TAKEN Active ??aspirin ??81 mgPODAILY cephalexin 500 mgPOBID#10 cap ??cranberry ??1 capPODAILY ??losartan 25 mg tablet ??25 [id number] Days#60 tab ??metformin 500 mg tablet,extended release 24 hr ??1,000 [id number] Days#60 tab ??plant stanol festus 450 mg tablet ??2 tabPODAILY?tab *Product no longer available DME/Medical Supplies ??blood sugar diagnostic ??lancets Allergies atorvastatin (ATORVASTATIN) Myalgias, ankle pain influenza virus vaccine tv splt (4 yr,up) (From FLUVIRIN) HIVES diphenhydramine (DIPHENHYDRAMINE) LAWSON AND FATIGUE lisinopril (LISINOPRIL) Body aches rosuvastatin (ROSUVASTATIN) Body aches niacin (NIACIN) PATIENT DOESN'T REMEMBER Problems External Data Available ? [facility] COVID-19 Constipation Acute UTI GERD (gastroesophageal reflux disease) Statin intolerance Screening breast examination Vaginal discharge Screening for malignant neoplasm of colon Post-menopausal Diabetes mellitus with polyneuropathy Type 2 diabetes mellitus with other specified complication Cough STEMI (ST elevation myocardial infarction) Mixed hyperlipidemia 12/28/11 Essential hypertension 07/29/12 Controlled type 2 diabetes mellitus without complication 12/28/11 Vital Signs Today 12:07 BP 187/83?H Pulse 108?H Resp 24? Temp 98.5 F? O2 Sat 99? Delivery Room Air? Diagnostics Reports Skye Powers??65??F??1955 ? Allergy/Adv: atorvastatin, influenza virus vaccine tv splt (4 yr,up), diphenhydramine, lisinopril, rosuvastatin, niacin (More??) Close Chest/Abdomen X-ray (Signed) Janna Barnett - 06/02/21 Chest X-Ray (Signed) Harpal Shaikh - 01/28/19 Abdomen/Pelvis CT (Signed) Dominguez Leija - 02/04/[address] (Signed) Dominguez Leija - 02/04/18 Chest X-Ray (Signed) Wayne Rosas - 02/04/18 Telemetry Strips 02/04/18 Radiology - Historical 01/12/16 Launch?[address] [address] XRay Report Signed Patient: Skye Powers MR#: [id number] : 1955 Acct:[id number] Age/Sex: 65 / F Date of Service: 06/02/21 Loc: ED Accession Number: [id number] ?? Procedure: XR acute abdomen series Ordering Provider: Jm Khan D.O. PROCEDURE:? XR ACUTE ABDOMEN SERIES ? INDICATIONS:? Abdominal pain, COVID+ ? TECHNIQUE:? One view chest and two views of the abdomen were acquired.? ? COMPARISON:? CT, CT ABDOMEN PELVIS W CON, 02/04/2018, 17:10. ? FINDINGS:? ? Surgical changes and devices:? None.? ? Chest:? Lungs are clear.? Heart size is normal.? No pleural effusions.? No pneumoperitoneum.? ? Abdomen:? Bowel gas pattern is normal. Moderate stool without obstruction.? No suspicious calcifications.? Visualized solid organ contours appear normal.? ? Bones:? No suspicious bony lesions.? ? IMPRESSION:? Moderate stool without obstruction.? ? Dictated by: Janna Barnett M.D. on 06/02/2021 at 15:27 ? ? Approved by: Janna Barnett M.D. on 06/02/2021 at 15:29 ? MDM Narrative Medical decision making narrative: Patient with very reassuring history and physical exam. She shows no sign of respiratory distress or need for supplemental oxygen. Regarding her COVID there is no indication for specific or in-depth workup and certainly not hospitalization. Her generalized abdominal pain is likely due to a large stool burden as noted on x-ray. There is no evidence of obstruction. Finally, she does have subtle changes in her urine consistent with an early urine infection, prior cultures have been consulted. Antibiotic sent to her pharmacy. Extensive return precautions discussed and questions have been answered to her apparent satisfaction Discharge Plan Departure Patient Disposition: Home Clinical Impression: COVID-19, Constipation, Acute UTI Instructions: DI for Urinary Tract Infection (UTI), DI for Constipation, DI for COVID-19 (Suspected or Confirmed ) Activity Restrictions/Additional Instructions: *You have been diagnosed with [ COVID-19, subtle findings consistent with UTI. X-ray suggests a large amount of stool consistent with constipation but no evidence of bowel obstruction *What to do: FOR UTI: A prescription for a short course of an antibiotic has been sent to your pharmacy FOR CONSTIPATION: *Take over the counter medications as directed: 1. Metamucil - is a bulk forming laxative and adds fiber 2. Colace - softens your stool 3. Dulcolax suppository - stimulates your bowels *Drink plenty of water and eat foods high in fiber *Stay as active as you can as this helps move your bowels as well FOR COVID: * per recommendations from the CDC and the [facility] Department of Health * stay home except to get medical care. Restrict activities outside your home, except for getting medical care. Do not go to work, school, or public areas. Avoid using public transportation, ride sharing, or taxis. * separate yourself from other people in your home. * call ahead before visiting your doctor * Wear a facemask * Cover your coughs and sneezes * Clean your hands often * Avoid sharing household items * Clean all high-touch services every day * Monitor your symptoms and seek prompt medical attention if your illness is worsening, particularly with difficulty in breathing. You may discontinue your isolation when: 1. You have been fever-free for at least 24 hours without the use of fever reducing medication, AND 2. Your symptoms are getting better, AND 3. At least 5 days have passed since symptoms first appeared 4. If you have fever, continue to stay home until fever resolves Individuals with laboratory confirmed COVID-19 who have not had any symptoms may discontinue home isolation when at least 5 days have passed since the date of their first COVID-19 diagnostic test and have had no subsequent illness You should notifiy any friends and family that have been in close contact *If up to date on COVID Vaccines, then they do not need to quarantine unless symptoms develop. Get tested on day 5 (or sooner if symptoms develop). Take precautions and watch for symptoms until day 10 *If NOT up to date on COVID Vaccines, then CDC recommends quarantine for at least 5 full days. Wear a well fitted mask at home if you must be around others. If they develop symptoms they should get tested. If they remain asymptomatic they should get tested on day 5. They should take precautions and monitor for symptoms until day 10. Prescriptions: New cephalexin 500 mg capsule 500 mg PO BID Qty: 10 0RF No Action plant stanol festus [Cholest Off] 450 mg tablet 2 tab PO DAILY 0RF Label Comments: 2 TABS PO QDAY losartan 25 mg tablet 25 mg PO BID 30 Days Qty: 60 0RF metformin 500 mg tablet extended release 24 hr 1,000 mg PO BID 30 Days Qty: 60 0RF (DME) Blood Glucose Test Strip See Rx Instructions .ROUTE .MEDSUPPLY Qty: 100 0RF Rx Instructions: Use to test blood glucose twice daily. (DME) lancets Misc See Rx Instructions .Route Qty: 100 3RF Rx Instructions: Use to check blood sugars twice daily aspirin 81 mg Tablet,Delayed Release (Dr/Ec) 81 mg PO DAILY 0RF cranberry 1 cap PO DAILY 0RF Referrals: Sari Ortega ARNP [Primary Care Provider] -
[2021-06-02 15:48] VITALS: BP 140/74; PULSE 112; RESP 20; O2SAT 100
== END 2021-06-02 15:49 | disposition home or self-care (01) ==
PROVIDERS: Emergency Provider Emergency Medicine; PCP Nurse Practitioner
DX: U07.1 COVID-19 (principal); K59.00 Constipation, unspecified; N39.0 Urinary tract infection, site not specified
CPT/HCPCS: 74022; 81001; 87077; 87086; 87186; 87635; 99283; C9803

== ENCOUNTER → 2021-11-26 09:00 | Outpatient (CLI) | payer MEDICARE, OTHER, SELFPAY ==
[2021-11-26 10:30] LABS: Add Manual Diff / Slide Review NO; Basophils Absolute Auto 100 /uL (0-100); Basophils Percent Auto 1.2 % (0-2); Eosinophils Absolute Auto 200 /uL (0-450); Eosinophils Percent Auto 3.5 % (2-4); Hematocrit 41.8 % (36-46); Hemoglobin 13.8 g/dL (12.0-16.0); Lymphocytes Absolute Auto 2200 /uL (1100-4500); Lymphocytes Percent Auto 48.7 % (25-40); Mean Corpuscular Hemoglobin 29.2 PG (26-34); Mean Corpuscular Volume 88.5 fL (80-100); Monocytes Absolute Auto 300 /uL (0-900); Monocytes Percent Auto 7.9 % (3-14); Neutrophils Absolute Auto 1700 /uL (1500-7000); Neutrophils Percent Auto 38.7 % (50-75); Platelet Count 262 X10^3/uL (150-400); Red Blood Cell Count 4.72 X10^6/uL (4.0-5.2); Red Cell Distribution Width 14.1 % (11.6-14.8); White Blood Cell Count 4.4 X10^3/uL (4.5-11.0)
[2021-11-26 10:50] LABS: Hemoglobin A1C% w Est Avg Glu 7.5 % (4.0-6.0)
[2021-11-26 11:41] LABS: Erythrocyte Sedimentation Rate 18 MM/HR (0-20)
[2021-11-26 11:44] LABS: Alanine Aminotransferase 20 IU/L (<35); Albumin 4.3 g/dL (3.5-5.0); Alkaline Phosphatase 58 U/L (38-126); Aspartate Aminotransferase 21 IU/L (14-36); BUN Creatinine Ratio 16.4 (6-22); Bilirubin Total 0.7 mg/dL (0.2-1.3); Blood Urea Nitrogen 11 mg/dL (7-17); C-Reactive Protein Quant < 0.5 mg/dL (<1.0); Calcium 9.2 mg/dL (8.4-10.2); Carbon Dioxide 30 mmol/L (22-32); Chloride 100 mmol/L (98-107); Cholesterol 247 mg/dL (140-199); Estimated Glomerular Filt Rate > 60 mL/min (>60); Globulin 4.2 g/dL (1.7-4.1); Glucose 137 mg/dL (80-110); HDL Cholesterol 47 mg/dL (40-60); HEMOLYSIS < 15 (0-50); LDL Cholesterol Calculated 174 mg/dL (<100); Potassium 4.9 mmol/L (3.4-5.1); Sodium 138 mmol/L (137-145); Total Protein 8.5 g/dL (6.3-8.2); Triglycerides 131 mg/dL (35-150)
[2021-11-26 11:58] LABS: Free T3, Triiodothyronine Free 3.54 pg/mL (2.77-5.27)
[2021-11-26 12:12] LABS: Thyroid Stimulating Hormone 1.31 uIU/mL (0.47-4.68)
[2021-11-26 12:13] LABS: Rheumatoid Factor 193.5 IU/mL (<12.0)
[2021-11-26 15:19] LABS: Creatinine Urine Random 79.7 mg/dL
[2021-11-26 15:22] LABS: Microalbumi Creatinin Ratio Ur 18.8 ug/mg CR (<30); Microalbumin Urine Random 1.5 mg/dL (0-1.6)
== END ==
PROVIDERS: PCP Nurse Practitioner; Referring Provider Nurse Practitioner; Visit Provider Nurse Practitioner
DX: E11.42 Type 2 diabetes mellitus with diabetic polyneuropathy (principal); E78.2 Mixed hyperlipidemia; I10 Essential (primary) hypertension; Z79.899 Other long term (current) drug therapy; I01.1 Acute rheumatic endocarditis; M06.9 Rheumatoid arthritis, unspecified; M79.641 Pain in right hand; M79.642 Pain in left hand
CPT/HCPCS: 36415; 80053; 80061; 82043; 82570; 83036; 84439; 84443; 84481; 85025; 85651; 86140; 86430

== ENCOUNTER → 2022-02-14 08:58 | Outpatient (CLI) | payer MEDICARE, OTHER, SELFPAY ==
[2022-02-14 10:17] LABS: Hemoglobin A1C% w Est Avg Glu 7.2 % (4.0-6.0)
[2022-02-14 10:40] LABS: Alanine Aminotransferase 22 IU/L (<35); Albumin 4.6 g/dL (3.5-5.0); Albumin Globulin Ratio 1.2 (1.0-2.8); Alkaline Phosphatase 53 U/L (38-126); Aspartate Aminotransferase 22 IU/L (14-36); BUN Creatinine Ratio 14.7 (6-22); Bilirubin Total 0.6 mg/dL (0.2-1.3); Blood Urea Nitrogen 10 mg/dL (7-17); Calcium 9.3 mg/dL (8.4-10.2); Carbon Dioxide 28 mmol/L (22-32); Chloride 99 mmol/L (98-107); Cholesterol 203 mg/dL (140-199); Estimated Glomerular Filt Rate > 60 mL/min (>60); Glucose 114 mg/dL (80-110); HDL Cholesterol 46 mg/dL (40-60); HEMOLYSIS < 15 (0-50); LDL Cholesterol Calculated 122 mg/dL (<100); Potassium 4.1 mmol/L (3.4-5.1); Sodium 139 mmol/L (137-145); Total Protein 8.6 g/dL (6.3-8.2); Triglycerides 173 mg/dL (35-150)
== END ==
PROVIDERS: PCP Nurse Practitioner; Referring Provider Nurse Practitioner; Visit Provider Nurse Practitioner
DX: E11.42 Type 2 diabetes mellitus with diabetic polyneuropathy (principal); E11.69 Type 2 diabetes mellitus with other specified complication; E78.2 Mixed hyperlipidemia; I10 Essential (primary) hypertension; Z79.899 Other long term (current) drug therapy
CPT/HCPCS: 36415; 80053; 80061; 83036

== ENCOUNTER → 2022-05-20 08:23 | Outpatient (CLI) | payer MEDICARE, OTHER, SELFPAY ==
[2022-05-20 09:19] LABS: Alanine Aminotransferase 18 IU/L (<35); Albumin 4.3 g/dL (3.5-5.0); Albumin Globulin Ratio 0.9 (1.0-2.8); Alkaline Phosphatase 56 U/L (38-126); Aspartate Aminotransferase 22 IU/L (14-36); BUN Creatinine Ratio 18.1 (6-22); Bilirubin Total 0.6 mg/dL (0.2-1.3); Blood Urea Nitrogen 13 mg/dL (7-17); Calcium 9.1 mg/dL (8.4-10.2); Carbon Dioxide 28 mmol/L (22-32); Chloride 100 mmol/L (98-107); Cholesterol 190 mg/dL (140-199); Estimated Glomerular Filt Rate > 60 mL/min (>60); Globulin 4.6 g/dL (1.7-4.1); Glucose 118 mg/dL (80-110); HDL Cholesterol 40 mg/dL (40-60); HEMOLYSIS < 15 (0-50); LDL Cholesterol Calculated 122 mg/dL (<100); Potassium 4.3 mmol/L (3.4-5.1); Sodium 137 mmol/L (137-145); Total Protein 8.9 g/dL (6.3-8.2); Triglycerides 141 mg/dL (35-150)
[2022-05-20 09:36] LABS: Free T3, Triiodothyronine Free 3.77 pg/mL (2.77-5.27); Free T4, Direct Thyroxine 1.04 ng/dL (0.78-2.19)
[2022-05-20 09:49] LABS: Thyroid Stimulating Hormone 1.46 uIU/mL (0.47-4.68)
[2022-05-20 10:41] LABS: Creatinine Urine Random 77.8 mg/dL
[2022-05-20 10:45] LABS: Microalbumi Creatinin Ratio Ur 8.9 ug/mg CR (<30); Microalbumin Urine Random 0.7 mg/dL (0-1.6)
[2022-05-21 01:59] LABS: x Labcorp Estim. Avg Glu (eAG) 154 mg/dL (.)
== END ==
PROVIDERS: PCP Nurse Practitioner; Referring Provider Nurse Practitioner; Visit Provider Nurse Practitioner
DX: E11.42 Type 2 diabetes mellitus with diabetic polyneuropathy (principal); E78.2 Mixed hyperlipidemia; E11.69 Type 2 diabetes mellitus with other specified complication; I10 Essential (primary) hypertension; R73.09 Other abnormal glucose; Z78.9 Other specified health status; Z79.899 Other long term (current) drug therapy
CPT/HCPCS: 36415; 80053; 80061; 82043; 82570; 83036; 84439; 84443; 84481

== ENCOUNTER → 2022-05-26 13:24 | Outpatient (CLI) | payer MEDICARE, OTHER, SELFPAY ==
[2022-05-28 15:51] LABS: Albumin 3.8 g/dL (2.9-4.4); Alpha-1-Globulin 0.2 g/dL (0.0-0.4); Alpha-2-Globulin 0.9 g/dL (0.4-1.0); Gamma Globulin 2.1 g/dL (0.4-1.8); Globulin Total 4.3 g/dL (2.2-3.9); Protein, Total 8.1 g/dL (6.0-8.5)
== END ==
PROVIDERS: PCP Nurse Practitioner; Referring Provider Nurse Practitioner; Visit Provider Nurse Practitioner
DX: R77.8 Other specified abnormalities of plasma proteins (principal)
CPT/HCPCS: 36415; 84155; 84165

== ENCOUNTER → 2022-08-20 08:05 | Outpatient (CLI) | payer MEDICARE, OTHER, SELFPAY ==
[2022-08-20 10:43] LABS: Alanine Aminotransferase 20 IU/L (<35); Albumin 4.5 g/dL (3.5-5.0); Albumin Globulin Ratio 1.1 (1.0-2.8); Alkaline Phosphatase 47 U/L (38-126); Aspartate Aminotransferase 24 IU/L (14-36); BUN Creatinine Ratio 17.9 (6-22); Bilirubin Total 0.7 mg/dL (0.2-1.3); Blood Urea Nitrogen 12 mg/dL (7-17); Calcium 8.9 mg/dL (8.4-10.2); Carbon Dioxide 29 mmol/L (22-32); Chloride 100 mmol/L (98-107); Cholesterol 180 mg/dL (140-199); Estimated Glomerular Filt Rate > 60 mL/min (>60); Glucose 103 mg/dL (80-110); HDL Cholesterol 51 mg/dL (40-60); HEMOLYSIS < 15 (0-50); LDL Cholesterol Calculated 105 mg/dL (<100); Potassium 4.6 mmol/L (3.4-5.1); Sodium 137 mmol/L (137-145); Total Protein 8.5 g/dL (6.3-8.2); Triglycerides 118 mg/dL (35-150)
[2022-08-21 04:30] LABS: x Labcorp Estim. Avg Glu (eAG) 154 mg/dL (.)
== END ==
PROVIDERS: PCP Nurse Practitioner; Referring Provider Nurse Practitioner; Visit Provider Nurse Practitioner
DX: E78.2 Mixed hyperlipidemia; I10 Essential (primary) hypertension; E11.42 Type 2 diabetes mellitus with diabetic polyneuropathy; Z78.9 Other specified health status
CPT/HCPCS: 80053; 80061; 83036

== ENCOUNTER → 2022-11-18 09:16 | Outpatient (CLI) | payer MEDICARE, OTHER, SELFPAY ==
[2022-11-18 10:13] LABS: Hemoglobin A1C% w Est Avg Glu 6.7 % (4.0-6.0)
[2022-11-18 10:19] LABS: Alanine Aminotransferase 17 IU/L (<35); Albumin 4.1 g/dL (3.5-5.0); Albumin Globulin Ratio 1.1 (1.0-2.8); Alkaline Phosphatase 45 U/L (38-126); Aspartate Aminotransferase 19 IU/L (14-36); BUN Creatinine Ratio 19.5 (6-22); Bilirubin Total 0.5 mg/dL (0.2-1.3); Blood Urea Nitrogen 16 mg/dL (7-17); Carbon Dioxide 26 mmol/L (22-32); Chloride 101 mmol/L (98-107); Cholesterol 163 mg/dL (140-199); Estimated Glomerular Filt Rate > 60 mL/min (>60); Globulin 3.9 g/dL (1.7-4.1); Glucose 105 mg/dL (80-110); HDL Cholesterol 52 mg/dL (40-60); HEMOLYSIS < 15 (0-50); LDL Cholesterol Calculated 91 mg/dL (<100); Potassium 4.5 mmol/L (3.4-5.1); Sodium 135 mmol/L (137-145); Triglycerides 102 mg/dL (35-150)
[2022-11-18 10:49] LABS: Thyroid Stimulating Hormone 1.09 uIU/mL (0.47-4.68)
[2022-11-18 10:57] LABS: Creatinine Urine Random 54.7 mg/dL
[2022-11-18 11:01] LABS: Microalbumi Creatinin Ratio Ur 16.4 ug/mg CR (<30); Microalbumin Urine Random 0.9 mg/dL (0-1.6)
== END ==
PROVIDERS: PCP Nurse Practitioner; Referring Provider Nurse Practitioner; Visit Provider Nurse Practitioner
DX: E11.42 Type 2 diabetes mellitus with diabetic polyneuropathy (principal); I10 Essential (primary) hypertension; E11.69 Type 2 diabetes mellitus with other specified complication; E78.2 Mixed hyperlipidemia; R77.8 Other specified abnormalities of plasma proteins
CPT/HCPCS: 36415; 80053; 80061; 82043; 82570; 83036; 84443

== ENCOUNTER → 2023-03-23 09:46 | Outpatient (CLI) | payer MEDICARE, OTHER, SELFPAY ==
[2023-03-23 11:33] LABS: Blood Urea Nitrogen 20 mg/dL (7-17); Calcium 9.3 mg/dL (8.4-10.2); Carbon Dioxide 31 mmol/L (22-32); Chloride 103 mmol/L (98-107); Estimated Glomerular Filt Rate > 60 mL/min (>60); Glucose 114 mg/dL (80-110); HEMOLYSIS < 15 (0-50); Potassium 4.5 mmol/L (3.4-5.1); Sodium 139 mmol/L (137-145)
[2023-03-24 12:09] LABS: x Labcorp Estim. Avg Glu (eAG) 146 mg/dL (.); x Labcorp Hemoglobin A1c 6.7 % (4.8-5.6)
== END ==
PROVIDERS: PCP Nurse Practitioner; Referring Provider Family Medicine; Visit Provider Family Medicine
DX: R73.09 Other abnormal glucose (principal); E11.69 Type 2 diabetes mellitus with other specified complication; E78.2 Mixed hyperlipidemia; I10 Essential (primary) hypertension; R77.8 Other specified abnormalities of plasma proteins
CPT/HCPCS: 36415; 80048; 83036

== ENCOUNTER → 2023-07-07 08:15 | Outpatient (CLI) | payer MEDICARE, OTHER, SELFPAY ==
[2023-07-07 09:30] LABS: Alanine Aminotransferase 15 IU/L (<35); Albumin 4.6 g/dL (3.5-5.0); Albumin Globulin Ratio 1.2 (1.0-2.8); Alkaline Phosphatase 56 U/L (38-126); Aspartate Aminotransferase 24 IU/L (14-36); BUN Creatinine Ratio 21.6 (6-22); Bilirubin Total 0.8 mg/dL (0.2-1.3); Blood Urea Nitrogen 16 mg/dL (7-17); Calcium 8.8 mg/dL (8.4-10.2); Carbon Dioxide 30 mmol/L (22-32); Chloride 103 mmol/L (98-107); Cholesterol 197 mg/dL (140-199); Estimated Glomerular Filt Rate > 60 mL/min (>60); Glucose 109 mg/dL (80-110); HDL Cholesterol 51 mg/dL (40-60); HEMOLYSIS < 15 (0-50); LDL Cholesterol Calculated 124 mg/dL (<100); Potassium 4.6 mmol/L (3.4-5.1); Sodium 138 mmol/L (137-145); Total Protein 8.6 g/dL (6.3-8.2); Triglycerides 110 mg/dL (35-150)
[2023-07-07 09:43] LABS: Creatinine Urine Random 44.06 mg/dL
[2023-07-07 09:44] LABS: Rheumatoid Factor 191.2 IU/mL (<12.0)
[2023-07-07 09:48] LABS: Free T3, Triiodothyronine Free 3.05 pg/mL (2.77-5.27); Free T4, Direct Thyroxine 0.89 ng/dL (0.78-2.19)
[2023-07-07 09:49] LABS: Microalbumin Urine Random < 0.6 mg/dL (0-1.6)
[2023-07-07 10:02] LABS: Thyroid Stimulating Hormone 1.39 uIU/mL (0.47-4.68)
[2023-07-07 10:22] LABS: HIV 1 & 2 Ab/Ag 4th Gen Combo NEGATIVE (NEGATIVE)
[2023-07-12 18:55] LABS: ANA Screen, IFA Negative (.)
== END ==
PROVIDERS: PCP Nurse Practitioner; Referring Provider Nurse Practitioner; Visit Provider Nurse Practitioner
DX: I10 Essential (primary) hypertension (principal); E11.42 Type 2 diabetes mellitus with diabetic polyneuropathy; E11.69 Type 2 diabetes mellitus with other specified complication; E78.2 Mixed hyperlipidemia; R73.09 Other abnormal glucose; H04.123 Dry eye syndrome of bilateral lacrimal glands; Z79.899 Other long term (current) drug therapy
CPT/HCPCS: 36415; 80053; 80061; 82043; 82570; 84439; 84443; 84481; 86038; 86430; 87389

== ENCOUNTER → 2023-10-08 08:32 | Outpatient (CLI) | payer MEDICARE, OTHER, SELFPAY ==
[2023-10-08 10:34] LABS: Alanine Aminotransferase 15 IU/L (<35); Albumin 4.4 g/dL (3.5-5.0); Albumin Globulin Ratio 1.2 (1.0-2.8); Alkaline Phosphatase 56 U/L (38-126); Aspartate Aminotransferase 21 IU/L (14-36); BUN Creatinine Ratio 20.2 (6-22); Bilirubin Total 0.5 mg/dL (0.2-1.3); Blood Urea Nitrogen 17 mg/dL (7-17); Calcium 9.3 mg/dL (8.4-10.2); Carbon Dioxide 26 mmol/L (22-32); Chloride 103 mmol/L (98-107); Cholesterol 185 mg/dL (140-199); Estimated Glomerular Filt Rate > 60 mL/min (>60); Globulin 3.7 g/dL (1.7-4.1); Glucose 117 mg/dL (80-110); HDL Cholesterol 60 mg/dL (40-60); HEMOLYSIS < 15 (0-50); LDL Cholesterol Calculated 100 mg/dL (<100); Potassium 5.2 mmol/L (3.4-5.1); Sodium 139 mmol/L (137-145); Total Protein 8.1 g/dL (6.3-8.2); Triglycerides 125 mg/dL (35-150)
[2023-10-08 19:35] LABS: Hemoglobin A1C% w Est Avg Glu 6.6 % (4.0-6.0)
== END ==
PROVIDERS: PCP Nurse Practitioner; Referring Provider Nurse Practitioner; Visit Provider Nurse Practitioner
DX: E11.69 Type 2 diabetes mellitus with other specified complication (principal); E78.2 Mixed hyperlipidemia; I10 Essential (primary) hypertension; R73.09 Other abnormal glucose
CPT/HCPCS: 36415; 80053; 80061; 83036

== ENCOUNTER → 2024-02-11 10:29 | Outpatient (CLI) | payer MEDICARE, OTHER, SELFPAY ==
[2024-02-11 11:27] LABS: Alanine Aminotransferase 20 IU/L (<35); Albumin 4.3 g/dL (3.5-5.0); Albumin Globulin Ratio 1.1 (1.0-2.8); Alkaline Phosphatase 58 U/L (38-126); Aspartate Aminotransferase 24 IU/L (14-36); Bilirubin Total 0.6 mg/dL (0.2-1.3); Blood Urea Nitrogen 17 mg/dL (7-17); Calcium 9.3 mg/dL (8.4-10.2); Carbon Dioxide 28 mmol/L (22-32); Chloride 102 mmol/L (98-107); Estimated Glomerular Filt Rate > 60 mL/min (>60); Globulin 3.8 g/dL (1.7-4.1); Glucose 114 mg/dL (80-110); HEMOLYSIS < 15 (0-50); Potassium 4.6 mmol/L (3.4-5.1); Sodium 137 mmol/L (137-145); Total Protein 8.1 g/dL (6.3-8.2)
[2024-02-11 11:29] LABS: Hemoglobin A1C% w Est Avg Glu 6.8 % (4.0-6.0)
[2024-02-11 11:41] LABS: Free T3, Triiodothyronine Free 3.76 pg/mL (2.77-5.27); Free T4, Direct Thyroxine 1.04 ng/dL (0.78-2.19)
[2024-02-11 11:55] LABS: Thyroid Stimulating Hormone 1.26 uIU/mL (0.47-4.68)
== END ==
LOC: LAB 10:30
PROVIDERS: PCP Nurse Practitioner; Referring Provider Nurse Practitioner; Visit Provider Nurse Practitioner
DX: E11.69 Type 2 diabetes mellitus with other specified complication (principal); E78.2 Mixed hyperlipidemia; Z78.9 Other specified health status; E11.42 Type 2 diabetes mellitus with diabetic polyneuropathy; I10 Essential (primary) hypertension; E87.5 Hyperkalemia
CPT/HCPCS: 36415; 80053; 83036; 84439; 84443; 84481

== ENCOUNTER → 2024-05-12 09:02 | Outpatient (CLI) | payer MEDICARE, OTHER, SELFPAY ==
[2024-05-12 10:34] LABS: Hematocrit 44.4 % (36-46); Hemoglobin 14.7 g/dL (12.0-16.0); Mean Corpuscular HGB Conc 33.2 % (30-36); Mean Corpuscular Hemoglobin 30.3 PG (26-34); Mean Corpuscular Volume 91.4 fL (80-100); Platelet Count 255 X10^3/uL (150-400); Red Blood Cell Count 4.86 X10^6/uL (4.0-5.2); Red Cell Distribution Width 13.7 % (11.6-14.8); White Blood Cell Count 4.9 X10^3/uL (4.5-11.0)
[2024-05-12 10:46] LABS: Hemoglobin A1C% w Est Avg Glu 6.3 % (4.0-6.0)
[2024-05-12 11:12] LABS: Alanine Aminotransferase 14 IU/L (<35); Albumin 4.6 g/dL (3.5-5.0); Albumin Globulin Ratio 1.2 (1.0-2.8); Alkaline Phosphatase 61 U/L (38-126); Aspartate Aminotransferase 21 IU/L (14-36); BUN Creatinine Ratio 16.7 (6-22); Bilirubin Total 0.8 mg/dL (0.2-1.3); Blood Urea Nitrogen 13 mg/dL (7-17); Calcium 9.5 mg/dL (8.4-10.2); Carbon Dioxide 28 mmol/L (22-32); Chloride 101 mmol/L (98-107); Cholesterol 218 mg/dL (140-199); Estimated Glomerular Filt Rate > 60 mL/min (>60); Globulin 3.7 g/dL (1.7-4.1); Glucose 119 mg/dL (80-110); HDL Cholesterol 52 mg/dL (40-60); HEMOLYSIS < 15 (0-50); LDL Cholesterol Calculated 138 mg/dL (<100); Potassium 4.8 mmol/L (3.4-5.1); Sodium 137 mmol/L (137-145); Total Protein 8.3 g/dL (6.3-8.2); Triglycerides 140 mg/dL (35-150)
== END ==
PROVIDERS: PCP Family Medicine; Referring Provider Family Medicine; Visit Provider Family Medicine
DX: E78.2 Mixed hyperlipidemia (principal); E11.69 Type 2 diabetes mellitus with other specified complication; E11.42 Type 2 diabetes mellitus with diabetic polyneuropathy; I10 Essential (primary) hypertension; Z79.899 Other long term (current) drug therapy
CPT/HCPCS: 36415; 80053; 80061; 83036; 85027

== ENCOUNTER 2024-07-06 19:24 | Emergency (ER) | payer MEDICARE, OTHER, SELFPAY ==
[2024-07-06] VITALS (8 sets, daily range): BP systolic 134–165; BP diastolic 79–90; PULSE 93–106; RESP 11–22; TEMP 36.8; O2SAT 94–99; BMI 21.0
--- NOTE | 2024-07-06 19:30 | EKG_ITS ---
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
--- NOTE | 2024-07-06 19:41 | DI.RAD.S_ITS ---
PROCEDURE: XR CHEST 1V INDICATIONS: Shortness of breath TECHNIQUE: One view of the chest was acquired. COMPARISON: [facility], CR, XR CHEST 2V, 01/28/2019, 13:02. [facility], CR, XR CHEST 1V, 02/04/2018, 17:02. FINDINGS: Surgical changes and devices: None. Lungs and pleura: Diffuse interstitial opacities and peribronchial cuffing. Probable small right pleural effusion. Mediastinum: Mediastinal contours appear normal. Heart size is enlarged. Bones and chest wall: No suspicious bony lesions. Overlying soft tissues appear unremarkable. IMPRESSION: [id number]-[id number] pulmonary edema. Probable small right pleural effusion. Dictated by: Osman Wolf M.D. on 07/06/2024 at 20:21 Approved by: Osman Wolf M.D. on 07/06/2024 at 20:22
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
[2024-07-06] MEDS: ASPIRIN 81 MG CHEW TAB 324 MG PO (20:05)
[2024-07-06 20:07] LABS: Add Manual Diff / Slide Review NO; Basophils Absolute Auto 0 /uL (0-100); Basophils Percent Auto 0.8 % (0-2); Eosinophils Absolute Auto 200 /uL (0-450); Eosinophils Percent Auto 2.9 % (2-4); Hematocrit 38.1 % (36-46); Hemoglobin 12.8 g/dL (12.0-16.0); Lymphocytes Absolute Auto 2000 /uL (1100-4500); Lymphocytes Percent Auto 35.6 % (25-40); Mean Corpuscular HGB Conc 33.6 % (30-36); Mean Corpuscular Hemoglobin 30.6 PG (26-34); Mean Corpuscular Volume 91.1 fL (80-100); Monocytes Absolute Auto 500 /uL (0-900); Monocytes Percent Auto 9.3 % (3-14); Neutrophils Absolute Auto 2900 /uL (1500-7000); Neutrophils Percent Auto 51.4 % (50-75); Platelet Count 244 X10^3/uL (150-400); Red Blood Cell Count 4.18 X10^6/uL (4.0-5.2); Red Cell Distribution Width 13.8 % (11.6-14.8); White Blood Cell Count 5.6 X10^3/uL (4.5-11.0)
[2024-07-06 20:14] LABS: Prothrombin Time 11.4 SECONDS (9.4-12.5)
[2024-07-06 20:18] LABS: Alanine Aminotransferase 15 IU/L (<35); Albumin 4.4 g/dL (3.5-5.0); Albumin Globulin Ratio 1.1 (1.0-2.8); Alkaline Phosphatase 50 U/L (38-126); Aspartate Aminotransferase 23 IU/L (14-36); BUN Creatinine Ratio 21.7 (6-22); Bilirubin Total 0.5 mg/dL (0.2-1.3); Blood Urea Nitrogen 15 mg/dL (7-17); Calcium 9.2 mg/dL (8.4-10.2); Carbon Dioxide 27 mmol/L (22-32); Chloride 103 mmol/L (98-107); Estimated Glomerular Filt Rate > 60 mL/min (>60); Globulin 3.9 g/dL (1.7-4.1); Glucose 156 mg/dL (70-99); HEMOLYSIS < 15 (0-50); Lactate (Lactic Acid) 1.5 mmol/L (0.7-2.1); Sodium 139 mmol/L (137-145); Total Protein 8.3 g/dL (6.3-8.2)
[2024-07-06 20:29] LABS: NT-proBNP (BNP-Adult 18+) 1870 pg/mL (<125); Troponin I 0.083 ng/mL (0.01-0.034)
[2024-07-06 20:35] LABS: D Dimer 1245 ng/ml (<500)
[2024-07-06] MEDS: HEPARIN DRIP 25,000 UNIT/500 ML IV.SOLN 12.519 UNIT IV (20:46)
--- NOTE | 2024-07-06 20:51 | DI.CT.S_ITS ---
PROCEDURE: CT ANGIO CHEST PE PROTOCOL INDICATIONS: short of breath TECHNIQUE: After the administration of intravenous contrast, 2 mm thick sections acquired from the pulmonary apices to the posterior costophrenic angles. 3-dimensional maximum intensity projection (MIP) coronal and sagittal reformats were then acquired through the thorax. For radiation dose reduction, the following was used: automated exposure control, adjustment of mA and/or kV according to patient size. COMPARISON: None. FINDINGS: Image quality: Diagnostic. Pulmonary arteries: Pulmonary arteries are normal in size, and demonstrate no intraluminal filling defects to suggest central pulmonary embolism. Lower Neck: No enlarged lymph nodes. Thyroid: No thyroid nodules which require sonographic follow up, per consensus guidelines. Axillae: No enlarged lymph nodes. Chest Wall: Unremarkable. Bones: Unremarkable. Lungs and Pleura: Diffuse smooth interstitial thickening. Bronchial thickening with this small pleural effusions. Heart: Heart size is enlarged, with three-vessel coronary calcifications. No pericardial effusion. Thoracic Vessels: No aortic aneurysm. Mediastinum and Sonja: No enlarged lymph nodes. Esophagus: No wall thickening. No hiatal hernia. Upper Abdomen: Visualized upper abdomen solid organs and bowel loops appear normal. IMPRESSION: No pulmonary embolus. Moderate pulmonary edema with small pleural effusions. Marked coronary artery calcifications for age. Correlate with risk factors and advise counseling. Dictated by: Osman Wolf M.D. on 07/06/2024 at 21:40 Approved by: Osman Wolf M.D. on 07/06/2024 at 21:43
[2024-07-06 22:28] LABS: Troponin I 0.101 ng/mL (0.01-0.034)
--- NOTE | 2024-07-14 10:15 | PC.NURSE ---
Late entry- per RN patient was transferred to another hospital with Heparin drip still infusing.
== END 2024-07-06 23:35 | disposition short-term general hospital (02) ==
PROVIDERS: Emergency Provider Emergency Medicine; PCP Family Medicine
DX: I21.4 Non-ST elevation (NSTEMI) myocardial infarction (principal); R07.9 Chest pain, unspecified
CPT/HCPCS: 36415; 71045; 71275; 80053; 83605; 83880; 84484; 85025; 85379; 85610; 86850; 86900; 86901; 93005; 96365; 96366; 99284; 99291; J1644; Q9967

== ENCOUNTER 2024-07-15 14:42 | Emergency (ER) | payer MEDICARE, OTHER, SELFPAY ==
[2024-07-15] VITALS (12 sets, daily range): BP systolic 124–156; BP diastolic 60–82; PULSE 72–91; RESP 17–57; TEMP 36.6; O2SAT 98–100; BMI 19.2
--- NOTE | 2024-07-15 14:53 | DI.RAD.S_ITS ---
PROCEDURE: XR CHEST 1V INDICATIONS: Chest Pain TECHNIQUE: One view of the chest was acquired. COMPARISON: [facility], CR, XR CHEST 1V, 07/06/2024, 19:46. [facility], CR, XR CHEST 2V, 01/28/2019, 13:02. FINDINGS: Surgical changes and devices: None. Lungs and pleura: Lungs are clear. No pleural effusions or pneumothorax. Mediastinum: Mediastinal contours appear normal. Heart size is normal. Bones and chest wall: No suspicious bony lesions. Overlying soft tissues appear unremarkable. IMPRESSION: No acute cardiopulmonary abnormality is seen. Dictated by: Jin Malone M.D. on 07/15/2024 at 15:30 Approved by: Jin Malone M.D. on 07/15/2024 at 15:30
--- NOTE | 2024-07-15 14:55 | EKG_ITS ---
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
--- NOTE | 2024-07-15 14:58 | ED.WEAKNESS ---
HPI - Weakness General Chief complaint: Weakness Stated complaint: heart surgery possible infection sent by nurse Time Seen by Provider: 07/15/24 14:58 Source: patient Mode of arrival: Wheelchair History of Present Illness HPI Narrative: 68-year-old female history of dyslipidemia type 2 diabetic CHF seen on 07/06/2024 diagnosed with NSTEMI status post 4 stents had Yoko mike discharged on 07/13/2024 presents today with weakness and generalized fatigue. Patient denied fever chills nausea vomiting diarrhea cough runny nose sore throat chest pain leg pain or leg swelling but just no energy. Patient's called the transfer center and spoke with the mid-level provider who asked that patient be sent to the ER for immediate evaluation. Other than what is stated 14 point review of system is negative. Related Data Home Medications ?Medication ?Instructions ?Recorded ?Confirmed aspirin 81 mg tablet,delayed 81 mg PO DAILY 02/04/18 05/24/24 release cranberry 1 cap PO DAILY 02/04/18 05/24/24 Previous Rx's ?Medication ?Instructions ?Recorded famotidine 20 mg tablet 20 mg PO BID #180 tabs 04/13/23 glucometer #1 ea 04/13/23 lancets #100 ea 04/13/23 Pepcid 20 mg tablet (famotidine) 20 mg PO DAILY #90 tabs 07/12/23 ezetimibe 10 mg tablet (Zetia) 10 mg PO DAILY #90 tabs 07/12/23 meloxicam 15 mg tablet 15 mg PO DAILY #90 tabs 10/13/23 semaglutide 3 mg tablet 3 mg PO DAILY #90 tabs 10/13/23 blood sugar diagnostic (Blood #200 ea 05/24/24 Glucose Test strips) losartan 25 mg tablet 25 mg PO BID #180 tabs 05/24/24 metformin 500 mg tablet 500 mg PO BID #180 tabs 05/24/24 Allergies Allergy/AdvReac Type Severity Reaction Status Date / Time atorvastatin (ATORVASTATIN) Allergy Intermediate Myalgias, Verified 07/15/24 14:48 ankle pain influenza virus vaccine tv Allergy Intermediate HIVES Verified 07/15/24 14:48 splt 2012- (4 yr,up) (From FLUVIRIN) diphenhydramine Allergy Mild LAWSON AND Verified 07/15/24 14:48 (DIPHENHYDRAMINE) FATIGUE lisinopril (LISINOPRIL) Allergy Mild Body aches Verified 07/15/24 14:48 rosuvastatin (ROSUVASTATIN) Allergy Mild Body aches Verified 07/15/24 14:48 niacin (NIACIN) Allergy Unknown PATIENT Verified 07/15/24 14:48 DOESN'T REMEMBER Review of Systems Review of Systems ROS Unobtainable: All systems reviewed & are unremarkable except as noted in HPI and below Patient History Medical History (Updated 07/15/24 @ 17:41 by Emerson Garcia DO) Gastric reflux Elevated rheumatoid factor Dry eyes Menopause (12/28/11) Family history of other cardiovascular diseases (12/28/11) Mixed hyperlipidemia due to type 2 diabetes mellitus Bilateral hand pain Mammogram declined Colon cancer screening declined Mixed hyperlipidemia (12/28/11) Surgical History Status post tubal ligation Social History marital status: second hand exposure: No alcohol intake: never substance use type: does not use alcohol intake frequency: 0-2 drinks per day Exam Narrative Exam Narrative: GENERAL: [68] year old patient appears stated age. Well-developed patient, in mild distress. HEAD: Atraumatic. Normocephalic. EYES: Pupils equal round and reactive. Extraocular motions intact. No scleral icterus. No injection or drainage. ENT: Nose without bleeding, purulent drainage. Throat without erythema, tonsillar hypertrophy or exudate. Airway patent. NECK: Trachea midline. Non tender CARDIOVASCULAR: Regular rate and rhythm without murmurs, gallops, or rubs. RESPIRATORY: Clear to auscultation. Breath sounds equal bilaterally. No wheezes, rales, or rhonchi. GASTROINTESTINAL: Abdomen soft, non-tender, nondistended. EXTREMITIES: No edema or joint tenderness. BACK: Nontender without deformity or crepitance. No flank tenderness. NEURO: AOx3. GCS 15 nonfocal neuro exam SKIN: No rash or erythema of visible areas Initial Vital Signs Initial Vital Signs: Vital Signs Temperature 97.9 F 07/15/24 14:48 Pulse Rate 79 07/15/24 14:48 Respiratory Rate 18 07/15/24 14:48 Blood Pressure 124/60 07/15/24 14:48 Pulse Oximetry 98 07/15/24 14:48 Oxygen Delivery Method Room Air 07/15/24 14:48 Procedures Laceration Repair Laceration 1: Number of sutures: 6 Scores HEART Score Heart Score history: Highly Suspicious Heart Score EKG: Non-Specific repolarization disturbance Heart Score Age: > or = 65 years old Heart Score risk factors: > 3 risk factors or hx of atherosclerotic disease Heart Score troponin: > 3 times normal limit Heart Score Total: 9 Course Orders Ordered: ED Orders 07/15/24 14:53 XR chest 1V Stat EKG-12 Lead Stat 07/15/24 15:08 Complete Blood Count AUTO DIFF Stat Comprehensive Metabolic Panel Stat Lipase Stat Magnesium Stat NT-proBNP (BNP-Adult 18+) Stat PTT Partial Thromboplastin Patricio Stat Prothrombin Time INR Stat Troponin & CK Cardiac Panel Stat 07/15/24 17:14 EKG-12 Lead Stat 07/15/24 17:20 Trop I [Troponin I] Stat Heparin Sodium/Dextrose (Heparin Drip) 25,000 unit in 500 mls @ 11.43 mls/hr IV CONT RORO; Protocol Discontinued Medications Aspirin (Aspirin 81 Mg Chew Tab) 324 mg PO NOW ONE Stop: 07/15/24 14:54 Last Admin: 07/15/24 16:14 Dose: Not Given Documented By: LM Vital Signs Vital signs: Vital Signs - 8 hr 07/15/24 14:48 07/15/24 15:07 07/15/24 15:09 Temperature 97.9 F Pulse Rate 79 72 Respiratory Rate 18 20 Blood Pressure 124/60 152/70 H Pulse Oximetry 98 Oxygen Delivery Method Room Air 07/15/24 15:09 07/15/24 15:30 07/15/24 15:30 Temperature Pulse Rate 73 73 Respiratory Rate 17 49 H Blood Pressure 137/73 Pulse Oximetry 100 99 Oxygen Delivery Method 07/15/24 16:00 07/15/24 16:00 07/15/24 16:30 Temperature Pulse Rate 76 Respiratory Rate 42 H Blood Pressure 140/70 151/75 H Pulse Oximetry 100 Oxygen Delivery Method 07/15/24 16:30 07/15/24 17:00 07/15/24 17:00 Temperature Pulse Rate 75 79 Respiratory Rate 45 H 57 H Blood Pressure 156/72 H Pulse Oximetry 100 100 Oxygen Delivery Method MDM - Weakness Lab Data 07/15/24 15:08 07/15/24 15:08 Labs: Lab Results 07/15/24 Range/Units 15:08 WBC 8.1 (4.5-11.0) X10^3/uL RBC 4.47 (4.0-5.2) X10^6/uL Hgb 13.7 (12.0-16.0) g/dL Hct 40.7 (36-46) % MCV 91.0 (80-100) fL MCH 30.7 (26-34) PG MCHC 33.8 (30-36) % RDW 13.5 (11.6-14.8) % Plt Count 310 (150-400) X10^3/uL Neut % (Auto) 64.0 (50-75) % Lymph % (Auto) 21.4 L (25-40) % Mchenry % (Auto) 11.1 (3-14) % Eos % (Auto) 2.8 (2-4) % Baso % (Auto) 0.7 (0-2) % Neut # (Auto) 5200 (9213-6617) /uL Lymph # (Auto) 1700 (7327-6756) /uL Mchenry # (Auto) 900 (0-900) /uL Eos # (Auto) 200 (0-450) /uL Baso # (Auto) 100 (0-100) /uL PT 11.4 (9.4-12.5) SECONDS INR 1.0 (0.9-1.3) APTT 40 H (25.1-36.5) SECONDS Sodium 132 L (137-145) mmol/L Potassium 4.5 (3.4-5.1) mmol/L Chloride 93 L (98-107) mmol/L Carbon Dioxide 27 (22-32) mmol/L BUN 33 H (7-17) mg/dL Creatinine 0.94 (0.52-1.04) mg/dL Estimated GFR > 60 (>60) mL/min BUN/Creatinine Ratio 35.1 H (6-22) Glucose 128 H (70-99) mg/dL Calcium 9.1 (8.4-10.2) mg/dL Magnesium 2.5 H (1.6-2.3) mg/dL Total Bilirubin 0.9 (0.2-1.3) mg/dL AST 50 H (14-36) IU/L ALT 32 (<35) IU/L Alkaline Phosphatase 63 (38-126) U/L Total Creatine Kinase 65 (30-135) U/L Troponin I 1.090 H* (0.01-0.034) ng/mL NT-Pro-B Natriuret Pep 2510 H (<125) pg/mL Total Protein 10.3 H (6.3-8.2) g/dL Albumin 4.9 (3.5-5.0) g/dL Globulin 5.4 H (1.7-4.1) g/dL Albumin/Globulin Ratio 0.9 L (1.0-2.8) Lipase 348 H (23-300) U/L Imaging Data Chest x-ray: Radiologist Impression: [address] [address] XRay Report Signed Patient: Skye Powers MR#: [id number] : 1955 Acct:[id number] Age/Sex: 68 / F Date of Service: 07/15/24 Loc: ED Accession Number: [id number] Procedure: XR chest 1V Ordering Provider: Emerson Garcia D.O. PROCEDURE: XR CHEST 1V INDICATIONS: Chest Pain TECHNIQUE: One view of the chest was acquired. COMPARISON: [facility], CR, XR CHEST 1V, 07/06/2024, 19:46. [facility], CR, XR CHEST 2V, 01/28/2019, 13:02. FINDINGS: Surgical changes and devices: None. Lungs and pleura: Lungs are clear. No pleural effusions or pneumothorax. Mediastinum: Mediastinal contours appear normal. Heart size is normal. Bones and chest wall: No suspicious bony lesions. Overlying soft tissues appear unremarkable. IMPRESSION: No acute cardiopulmonary abnormality is seen. ECG Data Interpretation: NSR HR 78 ME 154 QRS [address]-t wave change Change from 07/06/24 MDM Narrative Medical decision making narrative: All lab work vital signs nurse triage note medication list previous ER visits and all imaging studies reviewed. Chest x-ray did not show any acute process. WBC 8.1 hemoglobin 13.7 hematocrit 40.7 platelet of 310 INR was 1.0 in was 132 chloride was 93 potassium 4.5 CO2 27 BUN 33 creatinine 0.94 glucose 128 magnesium 2.5 troponin 1.09 BNP 2510. Heart score of 9. Differential diagnosis includes STEMI, NSTEMI, stent occlusion, myocardial rupture, PE, heart failure. Case discussed with Dr. Franco honing machine set up operator tool on-call who is actually the honing machine set up operator tool who stented the patient at [facility] wanted the patient to be transferred and admitted to the hospitalist service to trend serial cardiac enzymes to get an echo and to take the patient to the blender laborer would be the plan. Dr. Disla hospitalist at [facility] graciously accepted the patient for inpatient admission and to start patient on heparin bolus and drip. Critical care time 30 minutes. Discharge Plan Departure Patient Disposition: [facility] Clinical Impression: Elevated troponin Prescriptions: No Action losartan 25 mg tablet 25 mg PO BID Qty: 180 3RF (DME) Blood Glucose Test Strip See Rx Instructions .ROUTE .MEDSUPPLY Qty: 200 3RF Rx Instructions: Use to test blood glucose twice daily. metformin 500 mg tablet 500 mg PO BID Qty: 180 3RF famotidine 20 mg tablet 20 mg PO BID Qty: 180 3RF (DME) lancets Misc See Rx Instructions .Route Qty: 100 3RF Rx Instructions: Use to check blood sugars twice daily (DME) glucometer See Rx Instructions .Route .MEDSUPPLY Qty: 1 0RF Rx Instructions: Check blood sugars twice daily and as needed ezetimibe [Zetia] 10 mg tablet 10 mg PO DAILY Qty: 90 3RF Rx Instructions: Take 1 tab daily for elevated cholesterol. famotidine [Pepcid] 20 mg tablet 20 mg PO DAILY Qty: 90 3RF Rx Instructions: Must be name brand semaglutide 3 mg tablet 3 mg PO DAILY Qty: 90 3RF meloxicam 15 mg tablet 15 mg PO DAILY Qty: 90 3RF Rx Instructions: Take 1 tab with food daily aspirin 81 mg Tablet,Delayed Release (Dr/Ec) 81 mg PO DAILY cranberry 1 cap PO DAILY Referrals: Shraddha Tapia MD [Primary Care Provider, Family Practice]
[2024-07-15 15:22] LABS: Add Manual Diff / Slide Review NO; Basophils Absolute Auto 100 /uL (0-100); Basophils Percent Auto 0.7 % (0-2); Eosinophils Absolute Auto 200 /uL (0-450); Eosinophils Percent Auto 2.8 % (2-4); Hematocrit 40.7 % (36-46); Hemoglobin 13.7 g/dL (12.0-16.0); Lymphocytes Absolute Auto 1700 /uL (1100-4500); Lymphocytes Percent Auto 21.4 % (25-40); Mean Corpuscular HGB Conc 33.8 % (30-36); Mean Corpuscular Hemoglobin 30.7 PG (26-34); Monocytes Absolute Auto 900 /uL (0-900); Monocytes Percent Auto 11.1 % (3-14); Neutrophils Absolute Auto 5200 /uL (1500-7000); Platelet Count 310 X10^3/uL (150-400); Red Blood Cell Count 4.47 X10^6/uL (4.0-5.2); Red Cell Distribution Width 13.5 % (11.6-14.8); White Blood Cell Count 8.1 X10^3/uL (4.5-11.0)
[2024-07-15 15:26] LABS: Prothrombin Time 11.4 SECONDS (9.4-12.5)
[2024-07-15 15:28] LABS: PTT Partial Thromboplastin Tim 40 SECONDS (25.1-36.5)
[2024-07-15 15:30] LABS: Alanine Aminotransferase 32 IU/L (<35); Albumin 4.9 g/dL (3.5-5.0); Albumin Globulin Ratio 0.9 (1.0-2.8); Alkaline Phosphatase 63 U/L (38-126); Aspartate Aminotransferase 50 IU/L (14-36); BUN Creatinine Ratio 35.1 (6-22); Bilirubin Total 0.9 mg/dL (0.2-1.3); Blood Urea Nitrogen 33 mg/dL (7-17); Calcium 9.1 mg/dL (8.4-10.2); Carbon Dioxide 27 mmol/L (22-32); Chloride 93 mmol/L (98-107); Creatine Kinase 65 U/L (30-135); Estimated Glomerular Filt Rate > 60 mL/min (>60); Globulin 5.4 g/dL (1.7-4.1); Glucose 128 mg/dL (70-99); Lipase 348 U/L (23-300); Magnesium 2.5 mg/dL (1.6-2.3); Potassium 4.5 mmol/L (3.4-5.1); Sodium 132 mmol/L (137-145); Total Protein 10.3 g/dL (6.3-8.2)
[2024-07-15 15:32] LABS: HEMOLYSIS 82 (0-50)
[2024-07-15 15:41] LABS: NT-proBNP (BNP-Adult 18+) 2510 pg/mL (<125)
--- NOTE | 2024-07-15 17:14 | EKG_ITS ---
[place] [id number] [place] [id number] Test Date: 2024-07-15 Pat Name: Skye Powers Department: [facility] Room: Gender: Female Emergency Medical Service Manager: LIDA : 1955 Requested By: Order Number: [id number] Reading MD: Syed Carranza Measurements Intervals [place] Rate: 84 P: 61 [place]: 172 QRS: -41 QRSD: 96 T: 95 QT: 398 QTc: 470 Interpretive Statements Normal sinus rhythm Left axis deviation Left ventricular hypertrophy ( R in aVL , Raudel product , Romhilt-Jacobson ) Cannot rule out Septal infarct , age undetermined Electronically Signed On 07-16-2024 13:57:07 PDT by Syed Carranza
[2024-07-15] MEDS: HEPARIN DRIP 25,000 UNIT/500 ML IV.SOLN 11.43 UNIT IV (18:14)
[2024-07-15] MEDS: HEPARIN 5,000 UNIT/ML VIAL 3000 UNIT IV (18:14)
== END 2024-07-15 20:03 | disposition short-term general hospital (02) ==
PROVIDERS: Emergency Provider Family Medicine; PCP Family Medicine
DX: R07.9 Chest pain, unspecified (principal); R79.89 Other specified abnormal findings of blood chemistry; I25.2 Old myocardial infarction; R53.83 Other fatigue
CPT/HCPCS: 36415; 71045; 80053; 82550; 83690; 83735; 83880; 84484; 85025; 85610; 85730; 93005; 96365; 96375; 99284; 99285; J1644

== ENCOUNTER → 2024-12-14 08:26 | Outpatient (CLI) | payer MEDICARE, OTHER, SELFPAY ==
[2024-12-14 09:36] LABS: Hemoglobin A1C% w Est Avg Glu 6.4 % (4.0-6.0)
[2024-12-14 10:02] LABS: Alanine Aminotransferase 11 IU/L (<35); Albumin 4.5 g/dL (3.5-5.0); Albumin Globulin Ratio 1.2 (1.0-2.8); Alkaline Phosphatase 52 U/L (38-126); Blood Urea Nitrogen 12 mg/dL (7-17); Calcium 9.2 mg/dL (8.4-10.2); Carbon Dioxide 26 mmol/L (22-32); Chloride 99 mmol/L (98-107); Estimated Glomerular Filt Rate > 60 mL/min (>60); Globulin 3.7 g/dL (1.7-4.1); Glucose 109 mg/dL (70-99); HEMOLYSIS < 15 (0-50); Potassium 4.6 mmol/L (3.4-5.1); Sodium 135 mmol/L (137-145); Total Protein 8.2 g/dL (6.3-8.2)
[2024-12-14 14:56] LABS: Cholesterol 131 mg/dL (140-199); HDL Cholesterol 51 mg/dL (40-60); Triglycerides 126 mg/dL (35-150)
== END ==
PROVIDERS: PCP Family Medicine; Referring Provider Family Medicine; Visit Provider Family Medicine
DX: E11.42 Type 2 diabetes mellitus with diabetic polyneuropathy (principal); E11.69 Type 2 diabetes mellitus with other specified complication; E78.2 Mixed hyperlipidemia
CPT/HCPCS: 36415; 80053; 80061; 83036